=== PATIENT | female | born 1940 | race African-American/Black ===

== ENCOUNTER 2019-09-18 20:35 | Emergency (ER) | payer MEDICARE ==
[~2019-09-18] VITALS: Ht 154.9 cm; Wt 46.0 kg
[~2019-09-18 20:35] MED LIST: AMLO5TAB4 PO; CARV12.545 PO; CYCL5TAB PO; DOCU250C69 PO; FERR-63 PO; LEVO88TA7 PO; LOV40 SQ; TRAM50TA94 PO; VIC PO
[2019-09-18] MEDS ORDERED: SODIUM CHLORIDE 0.9% 1,000 ML IV ONE (20:55)
[2019-09-18 21:00] VITALS: BP 155/87
[2019-09-18] MEDS ORDERED: DEXTROSE 50% WATER 50ML SYRINGE IV ONE (21:00)
[2019-09-18 21:39] LABS: CLARITY URINE CLEAR (CLEAR); COLOR URINE YELLOW (YELLOW); KETONES URINE NEGATIVE (NEGATIVE); LEUKOCYTE ESTERASE URINE NEGATIVE (NEGATIVE); NITRITE URINE NEGATIVE (NEGATIVE); OCCULT BLOOD URINE NEGATIVE (NEGATIVE); PH URINE 7.5 (4.5-8.0); PROTEIN URINE NEGATIVE (NEGATIVE); SPECIFIC GRAVITY URINE 1.015 (1.005-1.030); UROBILINOGEN URINE 0.2 E.U./dL (0.2-1.0)
[2019-09-18 22:07] LABS: *AMPHETAMINES SCREEN URINE NEGATIVE (NEGATIVE); *BARBITURATES SCREEN URINE NEGATIVE (NEGATIVE); *BENZODIAZEPINES SCREEN URINE NEGATIVE (NEGATIVE); *COCAINE SCREEN URINE NEGATIVE (NEGATIVE)
[2019-09-18 22:08] LABS: CANNABINOID URINE SCREEN NEGATIVE (NEGATIVE); METHADONE URINE SCREEN NEGATIVE (NEGATIVE); OPIATES URINE SCREEN PRESUMTIVE POSITIVE (NEGATIVE); PHENCYCLIDINE URINE SCREEN NEGATIVE (NEGATIVE)
[2019-09-18 22:15] LABS: EOSINOPHILS % 3.4 % (0.0-5.0); HEMATOCRIT. 36.7 % (36.0-48.0); HEMOGLOBIN. 12.7 g/dL (12.0-16.0); LYMPHOCYTES % 30.9 % (20.0-50.0); MEAN CORPUSCULAR VOLUME 80.8 fL (81.0-99.0); MEAN PLATELET VOLUME 8.3 fl (7.4-10.4); MONOCYTES % 12.3 % (2.0-8.0); NEUTROPHILS % 52.4 % (40.0-76.0); PLATELET 144 x1000/uL (130-400); RED BLOOD CELL COUNT 4.54 mill/uL (4.2-5.4); RED CELL DISTRIBUTION WIDTH 14.5 % (11.6-14.6)
[2019-09-18 22:21] LABS: CHLORIDE 112 mEq/L (98-107)
[2019-09-18 22:23] LABS: INR 0.9; PROTHROMBIN TIME 10.3 sec (9.6-11.0)
[2019-09-18 22:25] LABS: ETHANOL BLOOD < 10 mg/dL
== END 2019-09-18 23:34 | disposition home or self-care (01) ==
LOC: ER 20:35 → CANBEDREQ 09-19 00:07
DX: E16.2 Hypoglycemia, unspecified (principal); I10 Essential (primary) hypertension; R41.82 Altered mental status, unspecified; H54.8 Legal blindness, as defined in USA; Z79.899 Other long term (current) drug therapy
CPT/HCPCS: 36415; 70450; 71045; 80053; 80305; 80320; 81003; 84484; 85025; 85610; 93005; 96361; 96374; 99285; J7030; G0480

== ENCOUNTER 2022-08-31 19:45 | Inpatient (IN) | payer MEDICARE ==
[~2022-08-31] VITALS: Ht 157.5 cm; Wt 49.6 kg
[~2022-08-31 19:45] MED LIST changes: +ENOX40SY27 SQ; -LOV40 SQ
[2022-08-31] MEDS ORDERED: AZITHROMYCIN 500MG/250ML 250 ML IV ONE (20:00)
[2022-08-31] MEDS ORDERED: CEFTRIAXONE 1GM PREMIX 50 ML IV ONE (20:00)
[2022-08-31] MEDS ORDERED: SODIUM CHLORIDE 0.9% 1000ML BAG (SEPSIS BOLUS) IV ONE (20:00)
[2022-08-31 20:38] LABS: BASOPHILS % 0.3 % (0.0-2.0); EOSINOPHILS % 0.2 % (0.0-5.0); HEMATOCRIT. 44.8 % (36.0-48.0); HEMOGLOBIN. 14.6 g/dL (12.0-16.0); LYMPHOCYTES % 17.5 % (20.0-50.0); MEAN CORPUSCULAR HEMOGLOBIN 27.6 pg (28.0-32.0); MEAN CORPUSCULAR VOLUME 84.6 fL (81.0-99.0); MEAN PLATELET VOLUME 10.3 fl (7.4-10.4); MONOCYTES % 8.9 % (2.0-8.0); NEUTROPHILS % 73.1 % (40.0-76.0); PLATELET 181 x1000/uL (130-400); RED BLOOD CELL COUNT 5.29 mill/uL (4.2-5.4); RED CELL DISTRIBUTION WIDTH 15.5 % (11.6-14.6)
[2022-08-31 20:42] LABS: BG BASE EXCESS -2.9 mmol/L (-2.0-2.0); BG CARBOXYHEMOGLOBIN 0.9 % (0.5-1.5); BG DEOXYHEMOGLOBIN 2.3 % (0.0-5.0); BG FRACTION INSPIRED OXYGEN 28; BG HCO3 ACT 20.3 mmol/L (22.0-26.0); BG METHEMOGLOBIN 0.3 % (0.0-1.5); BG OXYGEN SATURATION 97.7 % (92.0-98.5); BG OXYHEMOGLOBIN 96.5 % (94.0-97.0); BG PCO2 31.3 mmHg (35.0-45.0); BG PO2 106.9 mmHg (75.0-100.0); BG SAMPLE SITE LEFT RADIAL; BG TOTAL HEMOGLOBIN 14.2 g/dL (12.0-18.0); BG VENT MODE NASAL CANNULA
[2022-08-31] MEDS ORDERED: NITROGLYCERIN 0.4MG TABLET SL SL PRN (21:15)
[2022-08-31] MEDS ORDERED: KETOROLAC 15MG/ML VIAL IV PRN (21:15)
[2022-08-31] MEDS ORDERED: CLONIDINE 0.1MG TABLET PO PRN (21:15)
[2022-08-31] MEDS ORDERED: DOCUSATE SODIUM 100MG CAPSULE PO PRN (21:15)
[2022-08-31] MEDS ORDERED: IPRATROPIUM/ALBUTEROL 0.5-3(2.5)MG/3ML NEB NEB PRN (21:15)
[2022-08-31] MEDS ORDERED: ZOLPIDEM TARTRATE 5MG TABLET PO PRN (21:15)
[2022-08-31] MEDS ORDERED: MAGNESIUM/ALUMINUM HYDROXIDE/SIMETHICONE 30ML UDC PO PRN (21:15)
[2022-08-31] MEDS ORDERED: GUAIFENESIN 200MG/10ML SUGAR FREE UDC PO PRN (21:15)
[2022-08-31] MEDS ORDERED: ACETAMINOPHEN 325MG TABLET PO PRN ×2 (21:15)
[2022-08-31] MEDS ORDERED: ONDANSETRON HCL 4MG/2ML INJ IV PRN (21:15)
[2022-08-31 21:44] LABS: CHLORIDE 134 mEq/L (98-107)
[2022-08-31 21:45] LABS: PROTHROMBIN TIME 10.9 sec (9.6-11.0)
[2022-08-31 21:51] LABS: CREATINE KINASE 356 IU/L (26-192)
[2022-08-31 22:08] LABS: T4 FREE 1.37 ng/dL (0.76-1.46)
[2022-08-31 22:48] LABS: VITAMIN B12 SERUM 1819 pg/mL (211-911)
[2022-08-31 22:49] LABS: FOLIC ACID (FOLATE) SERUM > 20.00 ng/mL (>5.38)
[2022-08-31 23:16] LABS: CREATINE KINASE MB FRACTION 1.8 ng/mL (0.5-3.6)
[2022-08-31] MEDS: ENOXAPARIN 30MG/0.3ML SYR SUBCUT SCH (23:24)
[2022-09-01] MEDS ORDERED: DEXTROSE 5% WATER 1,000 ML IV ONE (00:45)
[2022-09-01 06:36] LABS: BASOPHILS % 0.1 % (0.0-2.0); EOSINOPHILS % 0.5 % (0.0-5.0); HEMOGLOBIN. 13.9 g/dL (12.0-16.0); LYMPHOCYTES % 19.3 % (20.0-50.0); MEAN CORPUSCULAR HEMOGLOBIN 27.3 pg (28.0-32.0); MEAN CORPUSCULAR VOLUME 84.4 fL (81.0-99.0); MEAN PLATELET VOLUME 9.9 fl (7.4-10.4); MONOCYTES % 10.5 % (2.0-8.0); NEUTROPHILS % 69.6 % (40.0-76.0); PLATELET 153 x1000/uL (130-400); RED CELL DISTRIBUTION WIDTH 15.4 % (11.6-14.6)
[2022-09-01 06:43] LABS: CHLORIDE 135 mEq/L (98-107)
[2022-09-01 06:53] LABS: CREATINE KINASE 396 IU/L (26-192); CREATINE KINASE MB FRACTION 1.6 ng/mL (0.5-3.6); PHOSPHORUS 4.4 mg/dL (2.5-4.9)
[2022-09-01] MEDS: ASCORBIC ACID 500 MG TABLET PO SCH ×2 (09:00→23:20)
[2022-09-01] MEDS ORDERED: ASPIRIN 325MG EC TABLET PO SCH (09:00)
[2022-09-01] MEDS ORDERED: ALBUTEROL (0.083%) 2.5MG/3ML NEB HHN PRN (10:00)
[2022-09-01] MEDS ORDERED: IPRATROPIUM BROMIDE (0.02%) 0.5MG/2.5ML NEB HHN PRN (10:00)
[2022-09-01 10:39] VITALS: BP 108/66
[2022-09-01] MEDS: DEXT 5% WATER + KCL 20MEQ/L 1,000 ML IV SCH ×2 (11:43→19:00)
[2022-09-01] MEDS: ENOXAPARIN 30MG/0.3ML SYR SUBCUT SCH (11:43)
[2022-09-01] MEDS: LEVOTHYROXINE SODIUM 88MCG TABLET PO SCH (11:44)
[2022-09-01] MEDS: ZINC SULFATE 220 MG ( 50 ) CAPSULE PO SCH (11:44)
[2022-09-01] MEDS: FAMOTIDINE 20MG TABLET PO SCH (11:44)
[2022-09-01 12:00] VITALS: BP 110/67
[2022-09-01 16:00] VITALS: BP 90/68
[2022-09-01] MEDS: CLOPIDOGREL 75MG TABLET PO SCH (18:30)
[2022-09-01] MEDS ORDERED: ASPIRIN 325MG TABLET PO NR (18:30)
[2022-09-01 20:00] VITALS: BP 87/54
[2022-09-01] MEDS ORDERED: CEFTRIAXONE 1,000 MG in DEXTROSE 5% WATER 50 ML IV SCH (20:00)
[2022-09-01] MEDS ORDERED: AZITHROMYCIN 500 MG in DEXT 5% WATER 250 ML IV SCH (21:00)
[2022-09-01 21:22] LABS: CLARITY URINE CLOUDY (CLEAR); COLOR URINE DARK YELLOW (YELLOW); KETONES URINE TRACE (NEGATIVE); LEUKOCYTE ESTERASE URINE TRACE (NEGATIVE); NITRITE URINE NEGATIVE (NEGATIVE); OCCULT BLOOD URINE NEGATIVE (NEGATIVE); PROTEIN URINE 2+ (NEGATIVE); SPECIFIC GRAVITY URINE 1.017 (1.005-1.030); UROBILINOGEN URINE 0.2 E.U./dL (0.2-1.0)
[2022-09-01 21:39] LABS: *AMPHETAMINES SCREEN URINE NEGATIVE (NEGATIVE); *BARBITURATES SCREEN URINE NEGATIVE (NEGATIVE); *BENZODIAZEPINES SCREEN URINE NEGATIVE (NEGATIVE); *COCAINE SCREEN URINE NEGATIVE (NEGATIVE); CANNABINOID URINE SCREEN NEGATIVE (NEGATIVE); METHADONE URINE SCREEN NEGATIVE (NEGATIVE); OPIATES URINE SCREEN NEGATIVE (NEGATIVE); PHENCYCLIDINE URINE SCREEN NEGATIVE (NEGATIVE)
[2022-09-01 21:45] LABS: SODIUM URINE RANDOM 11 mEq/L
[2022-09-01] MEDS: CEFTRIAXONE 1,000 MG in DEXTROSE 5% WATER 50 ML IV SCH (22:51)
[2022-09-01] MEDS: ATORVASTATIN CALCIUM 40MG TABLET PO SCH (23:20)
[2022-09-02] VITALS: BP 96/67
[2022-09-02] MEDS: AZITHROMYCIN 500 MG in DEXT 5% WATER 250 ML IV SCH ×2 (00:01→21:56)
[2022-09-02 04:00] VITALS: BP 126/72
[2022-09-02] MEDS: DEXT 5% WATER + KCL 20MEQ/L 1,000 ML IV SCH ×3 (05:22→21:56)
[2022-09-02] MEDS: LEVOTHYROXINE SODIUM 88MCG TABLET PO SCH (06:40)
[2022-09-02 08:00] VITALS: BP 120/97
[2022-09-02] MEDS: FAMOTIDINE 20MG TABLET PO SCH (09:00)
[2022-09-02] MEDS: ENOXAPARIN 30MG/0.3ML SYR SUBCUT SCH (09:00)
[2022-09-02] MEDS: CLOPIDOGREL 75MG TABLET PO SCH (09:00)
[2022-09-02] MEDS: ZINC SULFATE 220 MG ( 50 ) CAPSULE PO SCH (09:00)
[2022-09-02] MEDS: ASCORBIC ACID 500 MG TABLET PO SCH ×2 (09:00→21:00)
[2022-09-02] MEDS: ASPIRIN 81MG EC TABLET PO SCH (09:00)
[2022-09-02 12:00] VITALS: BP 115/68
[2022-09-02 16:00] VITALS: BP 120/79
[2022-09-02 20:00] VITALS: BP 114/77
[2022-09-02 20:01] LABS: HEPATITIS B SURFACE ANTIGEN NEGATIVE
[2022-09-02] MEDS: ATORVASTATIN CALCIUM 40MG TABLET PO SCH (21:00)
[2022-09-02] MEDS: CEFTRIAXONE 1,000 MG in DEXTROSE 5% WATER 50 ML IV SCH (21:59)
[2022-09-03] VITALS: BP 110/76
[2022-09-03] MEDS: DEXT 5% WATER + KCL 20MEQ/L 1,000 ML IV SCH ×2 (03:00→16:14)
[2022-09-03 04:00] VITALS: BP 108/75
[2022-09-03] MEDS: LEVOTHYROXINE SODIUM 88MCG TABLET PO SCH (05:36)
[2022-09-03 08:00] VITALS: BP 134/64
[2022-09-03] MEDS: ZINC SULFATE 220 MG ( 50 ) CAPSULE PO SCH (09:00)
[2022-09-03] MEDS: ASCORBIC ACID 500 MG TABLET PO SCH ×2 (09:00→21:00)
[2022-09-03] MEDS: ASPIRIN 81MG EC TABLET PO SCH (09:00)
[2022-09-03] MEDS: FAMOTIDINE 20MG TABLET PO SCH (09:00)
[2022-09-03] MEDS: CLOPIDOGREL 75MG TABLET PO SCH (09:00)
[2022-09-03] MEDS: ENOXAPARIN 30MG/0.3ML SYR SUBCUT SCH (10:09)
[2022-09-03 10:48] LABS: BASOPHILS % 0.2 % (0.0-2.0); EOSINOPHILS % 1.7 % (0.0-5.0); HEMATOCRIT. 40.5 % (36.0-48.0); LYMPHOCYTES % 25.4 % (20.0-50.0); MEAN CORPUSCULAR VOLUME 83.9 fL (81.0-99.0); MEAN PLATELET VOLUME 11.8 fl (7.4-10.4); MONOCYTES % 8.9 % (2.0-8.0); NEUTROPHILS % 63.8 % (40.0-76.0); PLATELET 135 x1000/uL (130-400); RED BLOOD CELL COUNT 4.83 mill/uL (4.2-5.4); RED CELL DISTRIBUTION WIDTH 15.2 % (11.6-14.6)
[2022-09-03 12:00] VITALS: BP 130/80
[2022-09-03 16:00] VITALS: BP 118/76
[2022-09-03 20:00] VITALS: BP 125/66
[2022-09-03] MEDS: ATORVASTATIN CALCIUM 40MG TABLET PO SCH (21:00)
[2022-09-03] MEDS: CEFTRIAXONE 1,000 MG in DEXTROSE 5% WATER 50 ML IV SCH (21:34)
[2022-09-03] MEDS: AZITHROMYCIN 500 MG in DEXT 5% WATER 250 ML IV SCH (21:34)
[2022-09-04 04:00] VITALS: BP 129/74
[2022-09-04] MEDS: LEVOTHYROXINE SODIUM 88MCG TABLET PO SCH (06:05)
[2022-09-04 07:45] LABS: BASOPHILS % 0.3 % (0.0-2.0); EOSINOPHILS % 1.9 % (0.0-5.0); HEMOGLOBIN. 12.9 g/dL (12.0-16.0); LYMPHOCYTES % 24.3 % (20.0-50.0); MEAN CORPUSCULAR VOLUME 81.9 fL (81.0-99.0); MEAN PLATELET VOLUME 10.5 fl (7.4-10.4); NEUTROPHILS % 66.5 % (40.0-76.0); PLATELET 136 x1000/uL (130-400); RED BLOOD CELL COUNT 4.76 mill/uL (4.2-5.4); RED CELL DISTRIBUTION WIDTH 14.8 % (11.6-14.6)
[2022-09-04 08:00] VITALS: BP 111/81
[2022-09-04] MEDS: FAMOTIDINE 20MG TABLET PO SCH (09:00)
[2022-09-04] MEDS: ASPIRIN 81MG EC TABLET PO SCH (09:00)
[2022-09-04] MEDS: CLOPIDOGREL 75MG TABLET PO SCH (09:00)
[2022-09-04] MEDS: ASCORBIC ACID 500 MG TABLET PO SCH ×2 (09:00→21:18)
[2022-09-04] MEDS: ZINC SULFATE 220 MG ( 50 ) CAPSULE PO SCH (09:00)
[2022-09-04] MEDS: ENOXAPARIN 30MG/0.3ML SYR SUBCUT SCH (11:42)
[2022-09-04] MEDS: DEXT 5% WATER + KCL 20MEQ/L 1,000 ML IV SCH ×2 (11:43→17:42)
[2022-09-04 12:00] VITALS: BP 131/79
[2022-09-04] MEDS: LORAZEPAM 2MG/ML CPJ IV PRN (14:18)
[2022-09-04 16:00] VITALS: BP 133/85
[2022-09-04 20:00] VITALS: BP 139/76
[2022-09-04] MEDS: CEFTRIAXONE 1,000 MG in DEXTROSE 5% WATER 50 ML IV SCH (20:29)
[2022-09-04] MEDS: ATORVASTATIN CALCIUM 40MG TABLET PO SCH (21:18)
[2022-09-04] MEDS: AZITHROMYCIN 500 MG in DEXT 5% WATER 250 ML IV SCH (21:51)
[2022-09-05] VITALS: BP 138/87
[2022-09-05 04:00] VITALS: BP 155/75
[2022-09-05] MEDS: LEVOTHYROXINE SODIUM 88MCG TABLET PO SCH (05:59)
[2022-09-05] MEDS: DEXT 5% WATER + KCL 20MEQ/L 1,000 ML IV SCH ×3 (06:02→23:57)
[2022-09-05 06:49] LABS: HEMATOCRIT. 37.5 % (36.0-48.0); HEMOGLOBIN. 12.3 g/dL (12.0-16.0); MEAN CORPUSCULAR HEMOGLOBIN 27.6 pg (28.0-32.0); MEAN PLATELET VOLUME 10.8 fl (7.4-10.4); PLATELET 119 x1000/uL (130-400); RED BLOOD CELL COUNT 4.46 mill/uL (4.2-5.4); RED CELL DISTRIBUTION WIDTH 14.9 % (11.6-14.6)
[2022-09-05 08:00] VITALS: BP 123/75
[2022-09-05] MEDS: CLOPIDOGREL 75MG TABLET PO SCH (10:24)
[2022-09-05] MEDS: ASCORBIC ACID 500 MG TABLET PO SCH ×2 (10:24→21:53)
[2022-09-05] MEDS: ZINC SULFATE 220 MG ( 50 ) CAPSULE PO SCH (10:24)
[2022-09-05] MEDS: ASPIRIN 81MG EC TABLET PO SCH (10:24)
[2022-09-05] MEDS: ENOXAPARIN 30MG/0.3ML SYR SUBCUT SCH (10:24)
[2022-09-05] MEDS: FAMOTIDINE 20MG TABLET PO SCH (10:24)
[2022-09-05] MEDS: RISPERIDONE 0.25MG TABLET NG SCH ×2 (10:26→18:06)
[2022-09-05 12:00] VITALS: BP 119/66
[2022-09-05 16:00] VITALS: BP 126/80
[2022-09-05 20:00] VITALS: BP 133/82
[2022-09-05 20:59] LABS: PLATELET ESTIMATE DECREASED
[2022-09-05] MEDS: CEFTRIAXONE 1,000 MG in DEXTROSE 5% WATER 50 ML IV SCH (21:00)
[2022-09-05] MEDS ORDERED: MIRTAZAPINE 15MG TABLET NG SCH (21:00)
[2022-09-05] MEDS: ATORVASTATIN CALCIUM 40MG TABLET PO SCH (21:53)
[2022-09-06] VITALS: BP 138/81
[2022-09-06 04:00] VITALS: BP 141/83
[2022-09-06] MEDS: RISPERIDONE 0.25MG TABLET NG SCH ×2 (06:04→17:35)
[2022-09-06] MEDS: LEVOTHYROXINE SODIUM 88MCG TABLET PO SCH (06:04)
[2022-09-06 08:00] VITALS: BP 125/100
[2022-09-06] MEDS ORDERED: LACTULOSE 20G/30ML UDC NG NR (09:00)
[2022-09-06] MEDS: ENOXAPARIN 30MG/0.3ML SYR SUBCUT SCH (09:15)
[2022-09-06] MEDS: ZINC SULFATE 220 MG ( 50 ) CAPSULE PO SCH (09:16)
[2022-09-06] MEDS: CLOPIDOGREL 75MG TABLET PO SCH (09:17)
[2022-09-06] MEDS: ASPIRIN 81MG EC TABLET PO SCH (09:17)
[2022-09-06] MEDS: FAMOTIDINE 20MG TABLET PO SCH (09:17)
[2022-09-06] MEDS: AMLODIPINE 2.5MG TABLET PO SCH (09:17)
[2022-09-06] MEDS: ASCORBIC ACID 500 MG TABLET PO SCH ×2 (09:18→20:42)
[2022-09-06] MEDS: DEXT 5% WATER + KCL 20MEQ/L 1,000 ML IV SCH ×2 (09:21→20:14)
[2022-09-06 10:30] LABS: BASOPHILS % 0.3 % (0.0-2.0); EOSINOPHILS % 2.8 % (0.0-5.0); HEMATOCRIT. 39.1 % (36.0-48.0); HEMOGLOBIN. 12.8 g/dL (12.0-16.0); LYMPHOCYTES % 26.3 % (20.0-50.0); MEAN CORPUSCULAR HEMOGLOBIN 26.9 pg (28.0-32.0); MEAN CORPUSCULAR VOLUME 82.3 fL (81.0-99.0); MEAN PLATELET VOLUME 10.6 fl (7.4-10.4); MONOCYTES % 10.9 % (2.0-8.0); NEUTROPHILS % 59.7 % (40.0-76.0); PLATELET 130 x1000/uL (130-400); RED BLOOD CELL COUNT 4.75 mill/uL (4.2-5.4)
[2022-09-06 10:39] LABS: CHLORIDE 118 mEq/L (98-107)
[2022-09-06 12:00] VITALS: BP 131/88
[2022-09-06] MEDS ORDERED: LORAZEPAM 2MG/ML CPJ IV NR (15:15)
[2022-09-06 16:00] VITALS: BP 123/89
[2022-09-06 20:00] VITALS: BP 118/89
[2022-09-06] MEDS: ATORVASTATIN CALCIUM 40MG TABLET PO SCH (20:42)
[2022-09-06] MEDS: MIRTAZAPINE 15MG TABLET PO SCH (20:42)
[2022-09-06] MEDS ORDERED: LORAZEPAM 2MG/ML CPJ IV PRN (21:00)
[2022-09-07] VITALS: BP 118/71
[2022-09-07 04:00] VITALS: BP 162/89
[2022-09-07] MEDS: DEXT 5% WATER + KCL 20MEQ/L 1,000 ML IV SCH (04:54)
[2022-09-07] MEDS: RISPERIDONE 0.25MG TABLET NG SCH ×2 (06:02→18:46)
[2022-09-07] MEDS: LEVOTHYROXINE SODIUM 88MCG TABLET PO SCH (06:03)
[2022-09-07 08:25] VITALS: BP 167/90
[2022-09-07] MEDS: ASPIRIN 81MG EC TABLET PO SCH ×2 (09:00→09:25)
[2022-09-07] MEDS: ASCORBIC ACID 500 MG TABLET PO SCH ×2 (09:00→20:01)
[2022-09-07] MEDS: ZINC SULFATE 220 MG ( 50 ) CAPSULE PO SCH (09:24)
[2022-09-07] MEDS: AMLODIPINE 2.5MG TABLET PO SCH ×2 (09:24→18:46)
[2022-09-07] MEDS: ENOXAPARIN 30MG/0.3ML SYR SUBCUT SCH (09:24)
[2022-09-07] MEDS: CLOPIDOGREL 75MG TABLET PO SCH (09:25)
[2022-09-07] MEDS: FAMOTIDINE 20MG TABLET PO SCH (09:25)
[2022-09-07 12:00] VITALS: BP 155/87
[2022-09-07] MEDS ORDERED: CLONIDINE 0.1MG TABLET PO NR (13:30)
[2022-09-07] MEDS: LORAZEPAM 2MG/ML CPJ IV PRN (15:16)
[2022-09-07 16:02] VITALS: BP 126/99
[2022-09-07 20:00] VITALS: BP 145/96
[2022-09-07] MEDS: MIRTAZAPINE 15MG TABLET PO SCH (20:00)
[2022-09-07] MEDS: ATORVASTATIN CALCIUM 40MG TABLET PO SCH (20:01)
[2022-09-08] VITALS: BP 126/86
[2022-09-08 04:00] VITALS: BP 145/82
[2022-09-08] MEDS ORDERED: RISPERIDONE 0.25MG TABLET NG SCH (06:00)
[2022-09-08] MEDS: LEVOTHYROXINE SODIUM 88MCG TABLET PO SCH (06:25)
[2022-09-08 07:05] LABS: BASOPHILS % 0.5 % (0.0-2.0); EOSINOPHILS % 2.8 % (0.0-5.0); HEMATOCRIT. 35.7 % (36.0-48.0); LYMPHOCYTES % 24.8 % (20.0-50.0); MEAN CORPUSCULAR HEMOGLOBIN 27.3 pg (28.0-32.0); MEAN CORPUSCULAR VOLUME 81.4 fL (81.0-99.0); MEAN PLATELET VOLUME 10.7 fl (7.4-10.4); MONOCYTES % 13.8 % (2.0-8.0); NEUTROPHILS % 58.1 % (40.0-76.0); PLATELET 144 x1000/uL (130-400); RED BLOOD CELL COUNT 4.38 mill/uL (4.2-5.4); RED CELL DISTRIBUTION WIDTH 14.8 % (11.6-14.6)
[2022-09-08 08:00] VITALS: BP 103/58
[2022-09-08] MEDS: FAMOTIDINE 20MG TABLET PO SCH (08:17)
[2022-09-08] MEDS: ASPIRIN 81MG EC TABLET PO SCH (08:17)
[2022-09-08] MEDS: CLOPIDOGREL 75MG TABLET PO SCH (08:18)
[2022-09-08] MEDS: ZINC SULFATE 220 MG ( 50 ) CAPSULE PO SCH (08:18)
[2022-09-08] MEDS: ENOXAPARIN 30MG/0.3ML SYR SUBCUT SCH (08:18)
[2022-09-08] MEDS: AMLODIPINE 2.5MG TABLET PO SCH (08:19)
[2022-09-08] MEDS: ASCORBIC ACID 500 MG TABLET PO SCH ×2 (08:19→19:49)
[2022-09-08 09:03] LABS: CHLORIDE 113 mEq/L (98-107); PHOSPHORUS 2.7 mg/dL (2.5-4.9)
[2022-09-08 12:00] VITALS: BP 134/92
[2022-09-08 16:00] VITALS: BP 98/45
[2022-09-08] MEDS ORDERED: AMLODIPINE 2.5MG TABLET PO SCH (17:00)
[2022-09-08] MEDS: RISPERIDONE 0.5MG TABLET NG SCH (17:00)
[2022-09-08] MEDS: ATORVASTATIN CALCIUM 40MG TABLET PO SCH (19:49)
[2022-09-08] MEDS: MIRTAZAPINE 15MG TABLET PO SCH (19:49)
[2022-09-08 20:00] VITALS: BP 154/96
[2022-09-09] VITALS: BP 96/75
[2022-09-09 04:00] VITALS: BP 117/87
[2022-09-09] MEDS: RISPERIDONE 0.5MG TABLET NG SCH (05:36)
[2022-09-09] MEDS: LEVOTHYROXINE SODIUM 88MCG TABLET PO SCH (05:39)
[2022-09-09 06:23] LABS: BASOPHILS % 0.4 % (0.0-2.0); EOSINOPHILS % 2.6 % (0.0-5.0); HEMOGLOBIN. 11.9 g/dL (12.0-16.0); LYMPHOCYTES % 23.7 % (20.0-50.0); MEAN CORPUSCULAR HEMOGLOBIN 27.2 pg (28.0-32.0); MEAN PLATELET VOLUME 11.5 fl (7.4-10.4); MONOCYTES % 9.9 % (2.0-8.0); NEUTROPHILS % 63.4 % (40.0-76.0); PLATELET 164 x1000/uL (130-400); RED BLOOD CELL COUNT 4.39 mill/uL (4.2-5.4); RED CELL DISTRIBUTION WIDTH 14.9 % (11.6-14.6)
[2022-09-09 08:00] VITALS: BP 138/93
[2022-09-09] MEDS: AMLODIPINE 2.5MG TABLET PO SCH (09:10)
[2022-09-09] MEDS: FAMOTIDINE 20MG TABLET PO SCH (09:11)
[2022-09-09] MEDS: ASPIRIN 81MG EC TABLET PO SCH (09:11)
[2022-09-09] MEDS: CLOPIDOGREL 75MG TABLET PO SCH (09:12)
[2022-09-09] MEDS: ZINC SULFATE 220 MG ( 50 ) CAPSULE PO SCH (09:12)
[2022-09-09] MEDS: ENOXAPARIN 30MG/0.3ML SYR SUBCUT SCH (09:13)
[2022-09-09] MEDS: ASCORBIC ACID 500 MG TABLET PO SCH ×2 (09:13→21:55)
[2022-09-09 12:00] VITALS: BP 139/92
[2022-09-09 16:00] VITALS: BP 127/85
[2022-09-09 20:00] VITALS: BP 132/58
[2022-09-09] MEDS: ATORVASTATIN CALCIUM 40MG TABLET PO SCH (21:55)
[2022-09-09] MEDS: MIRTAZAPINE 15MG TABLET PO SCH (21:55)
[2022-09-10] VITALS: BP 130/50
[2022-09-10 04:00] VITALS: BP 143/60
[2022-09-10] MEDS: LEVOTHYROXINE SODIUM 88MCG TABLET PO SCH (05:15)
[2022-09-10 08:00] VITALS: BP 158/89
[2022-09-10] MEDS: RISPERIDONE 0.5MG TABLET NG SCH ×2 (08:00→17:43)
[2022-09-10] MEDS: ZINC SULFATE 220 MG ( 50 ) CAPSULE PO SCH (08:57)
[2022-09-10] MEDS: AMLODIPINE 2.5MG TABLET PO SCH (08:57)
[2022-09-10] MEDS: ASCORBIC ACID 500 MG TABLET PO SCH ×2 (08:57→21:18)
[2022-09-10] MEDS: ASPIRIN 81MG EC TABLET PO SCH (08:57)
[2022-09-10] MEDS: ENOXAPARIN 30MG/0.3ML SYR SUBCUT SCH (08:57)
[2022-09-10] MEDS: FAMOTIDINE 20MG TABLET PO SCH (08:57)
[2022-09-10 12:00] VITALS: BP 120/83
[2022-09-10 16:00] VITALS: BP 140/88
[2022-09-10 20:00] VITALS: BP 104/59
[2022-09-10] MEDS: ATORVASTATIN CALCIUM 40MG TABLET PO SCH (21:17)
[2022-09-10] MEDS: MIRTAZAPINE 15MG TABLET PO SCH (21:17)
[2022-09-11] VITALS: BP 121/52
[2022-09-11 04:00] VITALS: BP 117/43
[2022-09-11] MEDS: LEVOTHYROXINE SODIUM 88MCG TABLET PO SCH (05:40)
[2022-09-11] MEDS: RISPERIDONE 0.5MG TABLET NG SCH ×2 (05:40→18:00)
[2022-09-11 05:45] LABS: BASOPHILS % 0.5 % (0.0-2.0); EOSINOPHILS % 2.3 % (0.0-5.0); HEMATOCRIT. 34.5 % (36.0-48.0); HEMOGLOBIN. 11.5 g/dL (12.0-16.0); LYMPHOCYTES % 26.9 % (20.0-50.0); MEAN CORPUSCULAR HEMOGLOBIN 27.2 pg (28.0-32.0); MEAN CORPUSCULAR VOLUME 81.4 fL (81.0-99.0); MEAN PLATELET VOLUME 10.8 fl (7.4-10.4); MONOCYTES % 11.4 % (2.0-8.0); NEUTROPHILS % 58.9 % (40.0-76.0); PLATELET 166 x1000/uL (130-400); RED BLOOD CELL COUNT 4.24 mill/uL (4.2-5.4); RED CELL DISTRIBUTION WIDTH 14.8 % (11.6-14.6)
[2022-09-11] MEDS: SODIUM CHLORIDE 0.45% 1,000 ML IV SCH (06:54)
[2022-09-11 08:00] VITALS: BP 148/78
[2022-09-11] MEDS: FAMOTIDINE 20MG TABLET PO SCH ×2 (09:00→11:55)
[2022-09-11] MEDS: AMLODIPINE 2.5MG TABLET PO SCH ×2 (09:00→11:55)
[2022-09-11] MEDS: ASPIRIN 81MG EC TABLET PO SCH ×2 (09:00→11:55)
[2022-09-11] MEDS: ASCORBIC ACID 500 MG TABLET PO SCH ×3 (09:00→20:55)
[2022-09-11] MEDS: ZINC SULFATE 220 MG ( 50 ) CAPSULE PO SCH ×2 (09:00→11:55)
[2022-09-11] MEDS: ENOXAPARIN 30MG/0.3ML SYR SUBCUT SCH ×2 (09:00→11:56)
[2022-09-11 12:00] VITALS: BP 139/80
[2022-09-11 16:00] VITALS: BP 134/82
[2022-09-11 20:00] VITALS: BP 145/81
[2022-09-11] MEDS: MIRTAZAPINE 15MG TABLET PO SCH (20:55)
[2022-09-11] MEDS: ATORVASTATIN CALCIUM 40MG TABLET PO SCH (20:55)
[2022-09-11] MEDS ORDERED: LORAZEPAM 2MG/ML CPJ IV PRN (23:00)
[2022-09-12] VITALS: BP 118/76
[2022-09-12] MEDS: SODIUM CHLORIDE 0.45% 1,000 ML IV SCH (00:12)
[2022-09-12 04:00] VITALS: BP 130/82
[2022-09-12] MEDS: LEVOTHYROXINE SODIUM 88MCG TABLET PO SCH (05:22)
[2022-09-12] MEDS: RISPERIDONE 0.5MG TABLET NG SCH (05:22)
[2022-09-12 07:02] LABS: BASOPHILS % 0.5 % (0.0-2.0); HEMATOCRIT. 34.9 % (36.0-48.0); HEMOGLOBIN. 11.8 g/dL (12.0-16.0); LYMPHOCYTES % 18.9 % (20.0-50.0); MEAN CORPUSCULAR HEMOGLOBIN 27.4 pg (28.0-32.0); MEAN PLATELET VOLUME 10.5 fl (7.4-10.4); MONOCYTES % 10.1 % (2.0-8.0); NEUTROPHILS % 69.5 % (40.0-76.0); PLATELET 177 x1000/uL (130-400); RED BLOOD CELL COUNT 4.31 mill/uL (4.2-5.4); RED CELL DISTRIBUTION WIDTH 14.8 % (11.6-14.6)
[2022-09-12 08:00] VITALS: BP 143/96
[2022-09-12] MEDS: FAMOTIDINE 20MG TABLET PO SCH (09:00)
[2022-09-12] MEDS: AMLODIPINE 2.5MG TABLET PO SCH (09:00)
[2022-09-12] MEDS: ASCORBIC ACID 500 MG TABLET PO SCH (09:00)
[2022-09-12] MEDS: ASPIRIN 81MG EC TABLET PO SCH (09:00)
[2022-09-12] MEDS: ZINC SULFATE 220 MG ( 50 ) CAPSULE PO SCH (09:00)
[2022-09-12] MEDS: ENOXAPARIN 30MG/0.3ML SYR SUBCUT SCH (09:57)
[2022-09-12 12:00] VITALS: BP 120/81
[2022-09-12 12:18] VITALS: BP 120/81
== END 2022-09-12 15:00 | disposition home health service (06) | DRG 91 ==
LOC: ER 19:57 → EDBEDREQ 20:19 → SUPCPDRO 21:05 → 7EST 21:11 → EDBEDREQSVC 21:33 → EDBEDREQ 21:33 → EDBEDREQTM 21:33
PROVIDERS: ADMIT Internal Medicine Geriatric Medicine; ATTEND Internal Medicine Geriatric Medicine
DX: G92.8 Other toxic encephalopathy (principal); I21.4 Non-ST elevation (NSTEMI) myocardial infarction; J96.01 Acute respiratory failure with hypoxia; N17.9 Acute kidney failure, unspecified; M62.82 Rhabdomyolysis; I13.0 Hypertensive heart and chronic kidney disease with heart failure and stage 1 through stage 4 chronic kidney disease, or unspecified chronic kidney disease; I50.22 Chronic systolic (congestive) heart failure; E87.20 Acidosis, unspecified; E87.0 Hyperosmolality and hypernatremia; F02.83 Dementia in other diseases classified elsewhere, unspecified severity, with mood disturbance; E87.1 Hypo-osmolality and hyponatremia; Z66 Do not resuscitate; N18.9 Chronic kidney disease, unspecified; M19.90 Unspecified osteoarthritis, unspecified site; I45.10 Unspecified right bundle-branch block; Z20.822 Contact with and (suspected) exposure to COVID-19; I49.1 Atrial premature depolarization; H91.90 Unspecified hearing loss, unspecified ear; U09.9 Post COVID-19 condition, unspecified; R62.7 Adult failure to thrive; I25.10 Atherosclerotic heart disease of native coronary artery without angina pectoris; I08.0 Rheumatic disorders of both mitral and aortic valves; H54.8 Legal blindness, as defined in USA; F32.A Depression, unspecified; E87.8 Other disorders of electrolyte and fluid balance, not elsewhere classified; E86.1 Hypovolemia; E86.0 Dehydration; E78.1 Pure hyperglyceridemia; I95.9 Hypotension, unspecified; R73.03 Prediabetes; F02.80 Dementia in other diseases classified elsewhere, unspecified severity, without behavioral disturbance, psychotic disturbance, mood disturbance, and anxiety; G30.9 Alzheimer's disease, unspecified; Z96.651 Presence of right artificial knee joint; Z96.653 Presence of artificial knee joint, bilateral; Z79.899 Other long term (current) drug therapy; Z79.02 Long term (current) use of antithrombotics/antiplatelets
CPT/HCPCS: 36415; 36600; 71045; 74018; 76705; 76770; 80048; 80053; 80061; 80305; 81003; 82375; 82550; 82553; 82607; 82728; 82746; 82805; 82962; 83036; 83540; 83550; 83605; 83615; 83735; 83880; 83930; 83935; 84100; 84145; 84300; 84439; 84443; 84484; 85025; 86705; 86709; 86803; 87340; 87426; 92610; 93005; 93306; 93970; 97164; 97530; 99291; C1893; C9803; J0456; J0696; J1650; J2060; J7030; J7060

== ENCOUNTER 2022-09-24 19:06 | Inpatient (IN) | payer MEDICARE ==
[~2022-09-24] VITALS: Ht 165.1 cm; Wt 50.6 kg
[2022-09-24] MEDS ORDERED: ONDANSETRON HCL 4MG/2ML INJ IV STA (20:02)
[2022-09-24] MEDS ORDERED: SODIUM CHLORIDE 0.9% 1000ML BAG (SEPSIS BOLUS) IV ONE (20:15)
[2022-09-24] MEDS ORDERED: CEFTRIAXONE 1GM PREMIX 50 ML IV ONE (20:15)
[2022-09-24 21:07] LABS: BASOPHILS % 0.7 % (0.0-2.0); EOSINOPHILS % 2.5 % (0.0-5.0); HEMATOCRIT. 39.3 % (36.0-48.0); HEMOGLOBIN. 12.3 g/dL (12.0-16.0); INR 1.2; LYMPHOCYTES % 26.4 % (20.0-50.0); MEAN CORPUSCULAR HEMOGLOBIN 27.2 pg (28.0-32.0); MEAN CORPUSCULAR VOLUME 86.7 fL (81.0-99.0); MEAN PLATELET VOLUME 10.5 fl (7.4-10.4); MONOCYTES % 11.5 % (2.0-8.0); NEUTROPHILS % 58.9 % (40.0-76.0); PLATELET 128 x1000/uL (130-400); PROTHROMBIN TIME 12.4 sec (9.6-11.0); RED BLOOD CELL COUNT 4.53 mill/uL (4.2-5.4); RED CELL DISTRIBUTION WIDTH 17.6 % (11.6-14.6)
[2022-09-24 21:09] LABS: CHLORIDE 138 mEq/L (98-107)
[2022-09-24 21:23] LABS: CREATINE KINASE 79 IU/L (26-192)
[2022-09-24] MEDS ORDERED: VANCOMYCIN 1G PREMIX 200 ML IV NR (23:00)
[2022-09-25 06:00] VITALS: BP 115/76
[2022-09-25 06:06] VITALS: BP 115/76
[2022-09-25] MEDS ORDERED: DEXT 5% WATER 100 ML IV SCH ×2 (06:45→07:45)
[2022-09-25] MEDS ORDERED: ACETAMINOPHEN 650MG SUPP PR PRN ×2 (06:45→07:45)
[2022-09-25 08:00] VITALS: BP 123/96
[2022-09-25] MEDS ORDERED: FAMOTIDINE 20MG/2ML VIAL IV SCH (09:00)
[2022-09-25] MEDS ORDERED: ENOXAPARIN 30MG/0.3ML SYR SUBCUT SCH (09:00)
[2022-09-25] MEDS: DEXTROSE 5% WATER 1,000 ML IV SCH ×2 (09:10→21:12)
[2022-09-25] MEDS: ENOXAPARIN 30MG/0.3ML SYR SUBCUT SCH (09:21)
[2022-09-25] MEDS: FAMOTIDINE 20MG/2ML VIAL IV SCH (09:21)
[2022-09-25 10:08] LABS: BASOPHILS % 0.5 % (0.0-2.0); EOSINOPHILS % 3.3 % (0.0-5.0); HEMATOCRIT. 34.5 % (36.0-48.0); HEMOGLOBIN. 11.4 g/dL (12.0-16.0); LYMPHOCYTES % 26.2 % (20.0-50.0); MEAN CORPUSCULAR HEMOGLOBIN 27.9 pg (28.0-32.0); MEAN CORPUSCULAR VOLUME 84.8 fL (81.0-99.0); MEAN PLATELET VOLUME 10.4 fl (7.4-10.4); PLATELET 120 x1000/uL (130-400); RED BLOOD CELL COUNT 4.07 mill/uL (4.2-5.4); RED CELL DISTRIBUTION WIDTH 16.6 % (11.6-14.6)
[2022-09-25 10:31] LABS: T4 FREE 0.9 ng/dL (0.76-1.46)
[2022-09-25] MEDS: LEVOTHYROXINE SODIUM 100 MCG/ VIAL IV SCH (11:13)
[2022-09-25 12:06] VITALS: BP 127/74
[2022-09-25 16:00] VITALS: BP 108/56
[2022-09-25 20:00] VITALS: BP 90/58
[2022-09-26] VITALS: BP_SYST 87; BP_SYST 96; BP_DIAS 56; BP_DIAS 66
[2022-09-26 03:57] VITALS: BP 99/67
[2022-09-26 08:00] VITALS: BP 107/76
[2022-09-26] MEDS ORDERED: DIATR MEGLU/DIATRIZOATE SOLN 30ML PO SCH (09:15)
[2022-09-26 09:42] LABS: BG BASE EXCESS -4.7 mmol/L (-2.0-2.0); BG CARBOXYHEMOGLOBIN 0.2 % (0.5-1.5); BG DEOXYHEMOGLOBIN 4.2 % (0.0-5.0); BG FRACTION INSPIRED OXYGEN 21; BG HCO3 ACT 18.6 mmol/L (22.0-26.0); BG METHEMOGLOBIN 0.2 % (0.0-1.5); BG OXYGEN SATURATION 95.8 % (92.0-98.5); BG OXYHEMOGLOBIN 95.4 % (94.0-97.0); BG PCO2 28.9 mmHg (35.0-45.0); BG PH 7.426 (7.350-7.450); BG PO2 77.6 mmHg (75.0-100.0); BG SAMPLE SITE LEFT BRACHIAL; BG TOTAL HEMOGLOBIN 11.2 g/dL (12.0-18.0); BG VENT MODE ROOM AIR
[2022-09-26] MEDS: ENOXAPARIN 30MG/0.3ML SYR SUBCUT SCH (10:13)
[2022-09-26] MEDS: LEVOTHYROXINE SODIUM 100 MCG/ VIAL IV SCH (10:13)
[2022-09-26] MEDS: FAMOTIDINE 20MG/2ML VIAL IV SCH (10:14)
[2022-09-26] MEDS: SODIUM BICARBONATE 100 MEQ in DEXTROSE 5% WATER 1,000 ML IV SCH ×2 (11:00→21:16)
[2022-09-26 12:00] VITALS: BP 97/52
[2022-09-26 16:00] VITALS: BP 110/64
[2022-09-26 20:00] VITALS: BP 104/79
[2022-09-27] VITALS: BP 105/56
[2022-09-27 04:00] VITALS: BP 93/61
[2022-09-27] MEDS: SODIUM BICARBONATE 100 MEQ in DEXTROSE 5% WATER 1,000 ML IV SCH ×3 (05:41→23:20)
[2022-09-27 07:23] LABS: BASOPHILS % 0.2 % (0.0-2.0); HEMATOCRIT. 34.8 % (36.0-48.0); LYMPHOCYTES % 23.9 % (20.0-50.0); MEAN CORPUSCULAR HEMOGLOBIN 27.5 pg (28.0-32.0); MEAN CORPUSCULAR VOLUME 86.7 fL (81.0-99.0); MEAN PLATELET VOLUME 11.5 fl (7.4-10.4); MONOCYTES % 8.7 % (2.0-8.0); NEUTROPHILS % 64.2 % (40.0-76.0); PLATELET 81 x1000/uL (130-400); RED BLOOD CELL COUNT 4.01 mill/uL (4.2-5.4); RED CELL DISTRIBUTION WIDTH 16.8 % (11.6-14.6)
[2022-09-27 08:21] VITALS: BP 115/67
[2022-09-27 08:26] LABS: CHLORIDE 118 mEq/L (98-107)
[2022-09-27] MEDS ORDERED: POTASSIUM CHLORIDE 20MEQ/PACKET NG NR (09:15)
[2022-09-27] MEDS: LEVOTHYROXINE SODIUM 100 MCG/ VIAL IV SCH (09:59)
[2022-09-27] MEDS: FAMOTIDINE 20MG/2ML VIAL IV SCH (10:03)
[2022-09-27] MEDS: ENOXAPARIN 30MG/0.3ML SYR SUBCUT SCH (10:07)
[2022-09-27 12:00] VITALS: BP 116/70
[2022-09-27 16:00] VITALS: BP 122/62
[2022-09-27 20:00] VITALS: BP 105/67
[2022-09-28] VITALS: BP 99/73
[2022-09-28 04:00] VITALS: BP 101/76
[2022-09-28] MEDS: SODIUM BICARBONATE 100 MEQ in DEXTROSE 5% WATER 1,000 ML IV SCH (06:22)
[2022-09-28 08:00] VITALS: BP 122/81
[2022-09-28 08:03] LABS: BASOPHILS % 0.2 % (0.0-2.0); EOSINOPHILS % 3.4 % (0.0-5.0); HEMATOCRIT. 28.8 % (36.0-48.0); HEMOGLOBIN. 9.8 g/dL (12.0-16.0); LYMPHOCYTES % 22.9 % (20.0-50.0); MEAN CORPUSCULAR HEMOGLOBIN 27.9 pg (28.0-32.0); MEAN CORPUSCULAR VOLUME 81.8 fL (81.0-99.0); MEAN PLATELET VOLUME 10.9 fl (7.4-10.4); MONOCYTES % 8.9 % (2.0-8.0); NEUTROPHILS % 64.6 % (40.0-76.0); PLATELET 81 x1000/uL (130-400); RED BLOOD CELL COUNT 3.52 mill/uL (4.2-5.4); RED CELL DISTRIBUTION WIDTH 16.2 % (11.6-14.6)
[2022-09-28] MEDS: ENOXAPARIN 30MG/0.3ML SYR SUBCUT SCH (08:59)
[2022-09-28] MEDS: LEVOTHYROXINE SODIUM 100 MCG/ VIAL IV SCH (08:59)
[2022-09-28] MEDS ORDERED: POTASSIUM CHLORIDE 20MEQ/PACKET NG NR (09:15)
[2022-09-28] MEDS ORDERED: POTASSIUM CHLORIDE 20MEQ/PACKET NG SCH (09:30)
[2022-09-28] MEDS ORDERED: MAGNESIUM 2 G PREMIX 50 ML IV ONE (09:45)
[2022-09-28] MEDS: MULTIVITAMINS,THER W-MINERALS TABLET NG SCH (11:01)
[2022-09-28] MEDS: FAMOTIDINE 20MG/2ML VIAL IV SCH (11:01)
[2022-09-28] MEDS ORDERED: BISACODYL 10MG SUPP PR NR (11:45)
[2022-09-28] MEDS: SODIUM CHL 0.45% + KCL 20MEQ/L 1,000 ML IV SCH ×2 (11:50→21:00)
[2022-09-28 12:00] VITALS: BP 139/59
[2022-09-28 16:00] VITALS: BP 122/75
[2022-09-28] MEDS: METOCLOPRAMIDE HCL 10MG/2ML VIAL IV SCH (17:30)
[2022-09-28 20:00] VITALS: BP 113/63
[2022-09-29] VITALS: BP 105/51
[2022-09-29] MEDS: METOCLOPRAMIDE HCL 10MG/2ML VIAL IV SCH ×2 (01:36→05:57)
[2022-09-29 04:00] VITALS: BP 112/75
[2022-09-29] MEDS: SODIUM CHL 0.45% + KCL 20MEQ/L 1,000 ML IV SCH ×2 (05:57→19:01)
[2022-09-29 06:42] LABS: CHLORIDE 111 mEq/L (98-107)
[2022-09-29 06:44] LABS: BASOPHILS % 0.1 % (0.0-2.0); EOSINOPHILS % 2.8 % (0.0-5.0); HEMATOCRIT. 31.1 % (36.0-48.0); HEMOGLOBIN. 10.4 g/dL (12.0-16.0); LYMPHOCYTES % 24.5 % (20.0-50.0); MEAN CORPUSCULAR HEMOGLOBIN 28.1 pg (28.0-32.0); MEAN CORPUSCULAR VOLUME 83.8 fL (81.0-99.0); MEAN PLATELET VOLUME 10.6 fl (7.4-10.4); MONOCYTES % 7.8 % (2.0-8.0); NEUTROPHILS % 64.8 % (40.0-76.0); PLATELET 81 x1000/uL (130-400); PROTHROMBIN TIME 10.4 sec (9.6-11.0); RED BLOOD CELL COUNT 3.71 mill/uL (4.2-5.4); RED CELL DISTRIBUTION WIDTH 15.8 % (11.6-14.6)
[2022-09-29 06:52] LABS: PHOSPHORUS 2.5 mg/dL (2.5-4.9)
[2022-09-29 08:00] VITALS: BP 136/75
[2022-09-29] MEDS: MULTIVITAMINS,THER W-MINERALS TABLET NG SCH (09:00)
[2022-09-29] MEDS: LEVOTHYROXINE SODIUM 100 MCG/ VIAL IV SCH (09:17)
[2022-09-29] MEDS: FAMOTIDINE 20MG/2ML VIAL IV SCH (09:17)
[2022-09-29] MEDS: DOCUSATE SODIUM SUGAR FREE 100MG/10ML UDC NG SCH (09:30)
[2022-09-29] MEDS ORDERED: LACTULOSE 20G/30ML UDC PO PRN (09:30)
[2022-09-29 12:00] VITALS: BP 122/78
[2022-09-29] MEDS ORDERED: CEFAZOLIN 1000MG PREMIX 50 ML IV ONE (13:00)
[2022-09-29] MEDS ORDERED: PROPOFOL 200MG/20ML VIAL IV ONE (14:15)
[2022-09-29] MEDS ORDERED: DEXAMETHASONE 4MG/ML 1ML VIAL ONE (14:31)
[2022-09-29] MEDS ORDERED: ONDANSETRON HCL 4MG/2ML INJ ONE (14:31)
[2022-09-29 16:00] VITALS: BP 136/82
[2022-09-29 20:00] VITALS: BP 125/76
[2022-09-30] VITALS: BP 105/73
[2022-09-30] MEDS: SODIUM CHL 0.45% + KCL 20MEQ/L 1,000 ML IV SCH (02:24)
[2022-09-30 04:00] VITALS: BP 118/66
[2022-09-30 07:03] LABS: BASOPHILS % 0.1 % (0.0-2.0); HEMATOCRIT. 29.1 % (36.0-48.0); HEMOGLOBIN. 9.7 g/dL (12.0-16.0); LYMPHOCYTES % 11.5 % (20.0-50.0); MEAN CORPUSCULAR VOLUME 83.8 fL (81.0-99.0); MEAN PLATELET VOLUME 11.7 fl (7.4-10.4); MONOCYTES % 7.2 % (2.0-8.0); NEUTROPHILS % 81.2 % (40.0-76.0); PLATELET 94 x1000/uL (130-400); RED BLOOD CELL COUNT 3.48 mill/uL (4.2-5.4); RED CELL DISTRIBUTION WIDTH 15.9 % (11.6-14.6)
[2022-09-30 08:06] VITALS: BP 110/76
[2022-09-30] MEDS ORDERED: LEVOTHYROXINE SODIUM 100 MCG/ VIAL IV SCH (09:00)
[2022-09-30] MEDS: MULTIVITAMINS,THER W-MINERALS TABLET NG SCH (09:45)
[2022-09-30] MEDS: FAMOTIDINE 20MG/2ML VIAL IV SCH (09:45)
[2022-09-30] MEDS: DOCUSATE SODIUM SUGAR FREE 100MG/10ML UDC NG SCH (09:46)
[2022-09-30 11:47] VITALS: BP 119/83
[2022-09-30] MEDS ORDERED: NA PHOS,M-B/NA PHOS,DI-BA ENEMA 118ML PR NR (12:30)
[2022-09-30 15:55] VITALS: BP 141/78
[2022-09-30] MEDS: FERROUS SULFATE 300MG/5ML UDC NG SCH (19:01)
[2022-09-30] MEDS: METOCLOPRAMIDE HCL 10MG/2ML VIAL IV SCH (19:01)
[2022-09-30 20:00] VITALS: BP 108/70
[2022-10-01] VITALS: BP 119/66
[2022-10-01] MEDS: METOCLOPRAMIDE HCL 10MG/2ML VIAL IV SCH ×3 (01:45→13:32)
[2022-10-01] MEDS: SODIUM CHL 0.45% + KCL 20MEQ/L 1,000 ML IV SCH ×3 (01:46→13:32)
[2022-10-01 04:00] VITALS: BP 134/76
[2022-10-01 06:57] LABS: BASOPHILS % 0.3 % (0.0-2.0); EOSINOPHILS % 3.2 % (0.0-5.0); HEMATOCRIT. 26.9 % (36.0-48.0); LYMPHOCYTES % 21.1 % (20.0-50.0); MEAN CORPUSCULAR HEMOGLOBIN 27.8 pg (28.0-32.0); MEAN CORPUSCULAR VOLUME 83.1 fL (81.0-99.0); MEAN PLATELET VOLUME 11.4 fl (7.4-10.4); MONOCYTES % 7.6 % (2.0-8.0); NEUTROPHILS % 67.8 % (40.0-76.0); PLATELET 90 x1000/uL (130-400); RED BLOOD CELL COUNT 3.23 mill/uL (4.2-5.4); RED CELL DISTRIBUTION WIDTH 15.9 % (11.6-14.6)
[2022-10-01] MEDS: LEVOTHYROXINE SODIUM 50MCG TABLET NG SCH (07:06)
[2022-10-01 08:00] VITALS: BP 154/84
[2022-10-01 08:00] LABS: PHOSPHORUS 2.5 mg/dL (2.5-4.9)
[2022-10-01] MEDS: FAMOTIDINE 20MG TABLET PO SCH (09:05)
[2022-10-01] MEDS: DOCUSATE SODIUM SUGAR FREE 100MG/10ML UDC NG SCH (09:05)
[2022-10-01] MEDS: FERROUS SULFATE 300MG/5ML UDC NG SCH ×2 (09:05→17:44)
[2022-10-01] MEDS: MULTIVITAMINS,THER W-MINERALS TABLET NG SCH (09:05)
[2022-10-01] MEDS ORDERED: DEXT 5% WATER 500 ML IV ONE (10:30)
[2022-10-01 12:00] VITALS: BP 128/111
[2022-10-01 16:00] VITALS: BP 119/80
[2022-10-01 20:00] VITALS: BP 136/83
[2022-10-01] MEDS: DEXTROSE 5% WATER 1,000 ML IV SCH (20:01)
[2022-10-02] VITALS (7 sets, daily range): BP systolic 111–139; BP diastolic 65–77
[2022-10-02] MEDS: LEVOTHYROXINE SODIUM 50MCG TABLET NG SCH (05:50)
[2022-10-02 09:21] LABS: BASOPHILS % 0.3 % (0.0-2.0); EOSINOPHILS % 2.3 % (0.0-5.0); HEMATOCRIT. 27.3 % (36.0-48.0); HEMOGLOBIN. 9.1 g/dL (12.0-16.0); LYMPHOCYTES % 18.1 % (20.0-50.0); MEAN CORPUSCULAR HEMOGLOBIN 27.6 pg (28.0-32.0); MEAN CORPUSCULAR VOLUME 82.8 fL (81.0-99.0); MEAN PLATELET VOLUME 10.3 fl (7.4-10.4); MONOCYTES % 7.8 % (2.0-8.0); NEUTROPHILS % 71.5 % (40.0-76.0); PLATELET 113 x1000/uL (130-400); RED CELL DISTRIBUTION WIDTH 15.8 % (11.6-14.6)
[2022-10-02] MEDS: DEXTROSE 5% WATER 1,000 ML IV SCH (09:50)
[2022-10-02] MEDS: FERROUS SULFATE 300MG/5ML UDC NG SCH ×2 (09:51→17:15)
[2022-10-02] MEDS: DOCUSATE SODIUM SUGAR FREE 100MG/10ML UDC NG SCH (09:51)
[2022-10-02] MEDS: MULTIVITAMINS,THER W-MINERALS TABLET NG SCH (09:51)
[2022-10-02] MEDS: FAMOTIDINE 20MG TABLET PO SCH (09:51)
== END 2022-10-02 22:20 | disposition home health service (06) | DRG 438 ==
LOC: ER 19:06 → MICUSO 23:02 → 3WST 09-25 05:13
PROVIDERS: ADMIT Internal Medicine; ATTEND Internal Medicine Geriatric Medicine
PROC: 0DH63UZ Insertion of Feeding Device into Stomach, Percutaneous Approach (ICD-10-PCS; principal; 2022-09-29)
DX: K85.90 Acute pancreatitis without necrosis or infection, unspecified (principal); E43 Unspecified severe protein-calorie malnutrition; G93.41 Metabolic encephalopathy; N17.9 Acute kidney failure, unspecified; I13.0 Hypertensive heart and chronic kidney disease with heart failure and stage 1 through stage 4 chronic kidney disease, or unspecified chronic kidney disease; E87.0 Hyperosmolality and hypernatremia; F02.818 Dementia in other diseases classified elsewhere, unspecified severity, with other behavioral disturbance; E87.20 Acidosis, unspecified; G93.49 Other encephalopathy; Z68.1 Body mass index [BMI] 19.9 or less, adult; R62.7 Adult failure to thrive; N18.9 Chronic kidney disease, unspecified; E03.9 Hypothyroidism, unspecified; G30.9 Alzheimer's disease, unspecified; Z66 Do not resuscitate; I50.9 Heart failure, unspecified; E86.0 Dehydration; E87.6 Hypokalemia; D50.9 Iron deficiency anemia, unspecified; D63.8 Anemia in other chronic diseases classified elsewhere; E78.1 Pure hyperglyceridemia; E78.5 Hyperlipidemia, unspecified; E87.8 Other disorders of electrolyte and fluid balance, not elsewhere classified; K56.41 Fecal impaction; L85.3 Xerosis cutis; H40.9 Unspecified glaucoma; M19.90 Unspecified osteoarthritis, unspecified site; R73.9 Hyperglycemia, unspecified; R74.01 Elevation of levels of liver transaminase levels; R74.8 Abnormal levels of other serum enzymes; R94.6 Abnormal results of thyroid function studies; Z96.653 Presence of artificial knee joint, bilateral; Z78.1 Physical restraint status; Z86.16 Personal history of COVID-19; Z79.899 Other long term (current) drug therapy
CPT/HCPCS: 36415; 36600; 71045; 74018; 74176; 74181; 76700; 76770; 80048; 80053; 80061; 80076; 82375; 82378; 82550; 82728; 82805; 83540; 83550; 83605; 83615; 83735; 84100; 84132; 84145; 84439; 84443; 84478; 85025; 86301; 87426; 99285; J0690; J0696; J1100; J1650; J2405; J2704; J2765; J3370; J3475; J3480; J3490; J7030; J7070; Q9963; A4315

== ENCOUNTER 2023-10-23 21:44 | Inpatient (IN) | payer MEDICARE ==
[~2023-10-23] VITALS: Ht 149.9 cm; Wt 55.8 kg
[2023-10-23 22:00] VITALS: PULSE 69; RESP 16
[2023-10-23] MEDS: METHYLPREDNISOLONE SOD SUCC 125MG/2ML (ACT-O-VIAL) IV STA (22:11)
[2023-10-23] MEDS ORDERED: FENTANYL 2500MCG/250ML PMX 250 ML IV ONE (22:15)
[2023-10-23] MEDS: MIDAZOLAM HCL 2 MG/2 ML VIAL IV PRN (22:38)
[2023-10-23] MEDS: MAGNESIUM 2 G PREMIX 50 ML IV ONE (22:50)
[2023-10-23 23:27] LABS: CARBON DIOXIDE 26 mEq/L (21-32); CHLORIDE 108 mEq/L (98-107); POTASSIUM 5.3 mEq/L (3.5-5.1); SODIUM 142 mEq/L (136-145)
[2023-10-23 23:28] LABS: CALCIUM 9.2 mg/dL (8.7-10.4)
[2023-10-23 23:30] LABS: PARTIAL THROMBOPLASTIN TIME < 21.0 sec (23.4-31.0); PROTHROMBIN TIME 10.9 sec (9.6-11.0)
[2023-10-23 23:32] LABS: CREATININE 1.7 mg/dL (0.6-1.0); GLUCOSE 213 mg/dL (70-105)
[2023-10-23 23:33] LABS: TROPONIN I HIGH SENSITIVITY 30 ng/L (3.0-34); UREA NITROGEN BLOOD 26 mg/dL (9-23)
[2023-10-23 23:34] LABS: ALANINE AMINOTRANSFERASE 14 IU/L (10-49); ASPARTATE AMINOTRANSFERASE 35 IU/L (<34)
[2023-10-23 23:35] LABS: BILIRUBIN TOTAL 0.9 mg/dL (0.1-1.0); PROTEIN TOTAL 7.8 g/dL (6.0-8.3)
[2023-10-24] VITALS (52 sets, daily range): BP systolic 89–141; BP diastolic 64–94; PULSE 54–95; RESP 14–29; TEMP 96–98.9
[2023-10-24] MEDS ORDERED: PROPOFOL 10MG/ML 100ML 100 ML IV SCH
[2023-10-24 00:03] LABS: LACTIC ACID 4.1 mmol/L (0.4-2.0)
[2023-10-24] MEDS: IPRATROPIUM BROMIDE (0.02%) 0.5MG/2.5ML NEB HHN STA (00:15)
[2023-10-24] MEDS: ALBUTEROL (0.083%) 2.5MG/3ML NEB HHN SCH (00:15)
[2023-10-24] MEDS: PROPOFOL 10MG/ML 100ML 100 ML IV PRN ×2 (00:38→20:57)
[2023-10-24 01:23] LABS: TROPONIN I HIGH SENSITIVITY 37 ng/L (3.0-34)
[2023-10-24 02:45] LABS: BASOPHILS % 0.1 % (0.0-2.0); HEMATOCRIT. 35.7 % (36.0-48.0); LYMPHOCYTES % 7.3 % (20.0-50.0); MEAN CORPUSCULAR HEMOGLOBIN 26.2 pg (28.0-32.0); MEAN CORPUSCULAR HGB CONC 30.9 g/dL (31.0-37.0); MEAN CORPUSCULAR VOLUME 84.8 fL (81.0-99.0); MEAN PLATELET VOLUME 9.1 fl (7.4-10.4); MONOCYTES % 4.1 % (2.0-8.0); NEUTROPHILS % 88.5 % (40.0-76.0); PLATELET 168 x1000/uL (130-400); RED BLOOD CELL COUNT 4.21 mill/uL (4.2-5.4); WHITE BLOOD COUNT 12.7 x1000/uL (4.5-11.0)
[2023-10-24] MEDS: BLOOD SUGAR DIAGNOSTIC STRIP TEST SCH (07:59)
[2023-10-24] MEDS ORDERED: ALBUTEROL (0.083%) 2.5MG/3ML NEB HHN NR (08:15)
[2023-10-24] MEDS: FENTANYL CITRATE 2,500 MCG in SODIUM CHLORIDE 0.9% 200 ML IV PRN (08:30)
[2023-10-24] MEDS ORDERED: VANCOMYCIN 1G PREMIX 200 ML IV NR (08:30)
[2023-10-24] MEDS: PANTOPRAZOLE SODIUM 40 MG/VIAL IV SCH (09:09)
[2023-10-24] MEDS: PIPERACILLIN/TAZO 3.375G/50ML 50 ML IV SCH (09:09)
[2023-10-24] MEDS: ENOXAPARIN 30MG/0.3ML SYR SUBCUT SCH (09:11)
[2023-10-24] MEDS: INSULIN LISPRO 100 UNITS/ML SUBCUT SCH (09:12)
[2023-10-24 09:15] LABS: BG BASE EXCESS -0.9 mmol/L (-2.0-2.0); BG CARBOXYHEMOGLOBIN 0.3 % (0.5-1.5); BG DEOXYHEMOGLOBIN 3.1 % (0.0-5.0); BG HCO3 ACT 23.1 mmol/L (22.0-26.0); BG METHEMOGLOBIN 0.2 % (0.0-1.5); BG OXYGEN SATURATION 96.9 % (92.0-98.5); BG OXYHEMOGLOBIN 96.4 % (94.0-97.0); BG PCO2 36.3 mmHg (35.0-45.0); BG PH 7.422 (7.350-7.450); BG PO2 91.3 mmHg (75.0-100.0); BG SAMPLE SITE RIGHT RADIAL; BG VENT MODE VENT - AC
[2023-10-24 09:50] LABS: HEMATOCRIT 33.8 % (36.0-48.0); HEMOGLOBIN 10.9 g/dL (12.0-16.0); MEAN CORPUSCULAR HGB CONC 32.3 g/dL (31.0-37.0); MEAN CORPUSCULAR VOLUME 83.6 fL (81.0-99.0); PLATELET 165 x1000/uL (130-400); RED BLOOD CELL COUNT 4.04 mill/uL (4.2-5.4); RED CELL DISTRIBUTION WIDTH 15.9 % (11.6-14.6); WHITE BLOOD COUNT 17.5 x1000/uL (4.5-11.0)
[2023-10-24 09:55] LABS: CARBON DIOXIDE 22 mEq/L (21-32); CHLORIDE 108 mEq/L (98-107); POTASSIUM 4.3 mEq/L (3.5-5.1); SODIUM 140 mEq/L (136-145)
[2023-10-24 09:56] LABS: CALCIUM 9.1 mg/dL (8.7-10.4)
[2023-10-24 10:01] LABS: CREATININE 1.4 mg/dL (0.6-1.0); GLUCOSE 132 mg/dL (70-105); UREA NITROGEN BLOOD 26 mg/dL (9-23)
[2023-10-24 11:18] LABS: IRON 18 ug/dL (50-170); TRIGLYCERIDE 111 mg/dL (0-150)
[2023-10-24 11:19] LABS: LDL CHOLESTEROL 121 mg/dL (5-100)
[2023-10-24 11:20] LABS: CHOLESTEROL 193 mg/dL (<200); HDL CHOLESTEROL 62 mg/dL (>65)
[2023-10-24] MEDS: VANCOMYCIN 1.25GM PMX (XELLIA) 250 ML IV SCH (11:20)
[2023-10-24 11:21] LABS: TOTAL IRON BINDING CAPACITY 252 ug/dl (250-425)
[2023-10-24 11:23] LABS: T4 FREE 1.21 ng/dL (0.89-1.76); THYROID STIMULATING HORMONE 1.84 uIU/mL (0.55-4.78)
[2023-10-24 11:33] LABS: FOLIC ACID (FOLATE) SERUM > 20.00 ng/mL (>5.38)
[2023-10-24 11:46] LABS: BG BASE EXCESS -1.4 mmol/L (-2.0-2.0); BG CARBOXYHEMOGLOBIN 0.3 % (0.5-1.5); BG DEOXYHEMOGLOBIN 7.2 % (0.0-5.0); BG FRACTION INSPIRED OXYGEN 100; BG HCO3 ACT 22.5 mmol/L (22.0-26.0); BG METHEMOGLOBIN 0.3 % (0.0-1.5); BG OXYGEN SATURATION 92.8 % (92.0-98.5); BG OXYHEMOGLOBIN 92.2 % (94.0-97.0); BG PCO2 35.2 mmHg (35.0-45.0); BG PH 7.424 (7.350-7.450); BG SAMPLE SITE RIGHT RADIAL; BG TOTAL HEMOGLOBIN 12.4 g/dL (12.0-18.0); BG TOTAL RESPIRATORY RATE 17 b/min; BG VENT MODE VENT - AC
[2023-10-24 12:42] LABS: CREATINE KINASE MB FRACTION 1.7 ng/mL (0.5-3.6)
[2023-10-24 13:06] LABS: CLARITY URINE CLEAR (CLEAR); COLOR URINE YELLOW (YELLOW); GLUCOSE URINE NEGATIVE (NEGATIVE); KETONES URINE NEGATIVE (NEGATIVE); LEUKOCYTE ESTERASE URINE NEGATIVE (NEGATIVE); NITRITE URINE NEGATIVE (NEGATIVE); OCCULT BLOOD URINE NEGATIVE (NEGATIVE); PH URINE 5.5 (4.5-8.0); PROTEIN URINE 1+ (NEGATIVE); SPECIFIC GRAVITY URINE 1.016 (1.005-1.030); UROBILINOGEN URINE 0.2 E.U./dL (0.2-1.0)
[2023-10-24] MEDS: IPRATROPIUM/ALBUTEROL 0.5-3(2.5)MG/3ML NEB HHN SCH (13:43)
[2023-10-24 13:58] LABS: *AMPHETAMINES SCREEN URINE NEGATIVE (NEGATIVE); *BARBITURATES SCREEN URINE NEGATIVE (NEGATIVE); *BENZODIAZEPINES SCREEN URINE PRESUMPTIVE POSITIVE (NEGATIVE); *COCAINE SCREEN URINE NEGATIVE (NEGATIVE); CANNABINOID URINE SCREEN NEGATIVE (NEGATIVE); ECSTASY MDMA SCREEN URINE NEGATIVE (NEGATIVE); METHADONE URINE SCREEN Neg (NEGATIVE); OPIATES URINE SCREEN NEGATIVE (NEGATIVE); PHENCYCLIDINE URINE SCREEN NEGATIVE (NEGATIVE)
[2023-10-24 14:08] LABS: SQUAMOUS EPITHELIAL CELL URINE 1+ /lpf (RARE/1+)
[2023-10-24 14:09] LABS: BACTERIA URINE 1+; RBC URINE 0-2 /hpf (0-2)
[2023-10-24 14:11] LABS: WBC URINE 0-2 /hpf (0-2)
[2023-10-24] MEDS: PIPERACILLIN/TAZO 3.375G/50ML IV SCH (15:36)
[2023-10-24] MEDS: METHYLPREDNISOLONE SOD SUCC 40MG/ML (ACT-O-VIAL) IV SCH (17:28)
[2023-10-24 18:50] LABS: CREATINE KINASE MB FRACTION 1.2 ng/mL (0.5-3.6)
[2023-10-24] MEDS: SODIUM CHLORIDE 3% FOR INH 4ML NEB INH NR (20:30)
[2023-10-24] MEDS ORDERED: NOREPINEPHRINE 8MG/250ML PMX 250 ML IV PRN (23:30)
[2023-10-25] VITALS (106 sets, daily range): BP systolic 89–149; BP diastolic 64–98; PULSE 65–100; RESP 14–34; TEMP 97.5–98.1
[2023-10-25 01:08] LABS: CREATINE KINASE MB FRACTION 0.7 ng/mL (0.5-3.6)
[2023-10-25 05:12] LABS: HEMATOCRIT. 30.9 % (36.0-48.0); HEMOGLOBIN. 10.1 g/dL (12.0-16.0); MEAN CORPUSCULAR HEMOGLOBIN 27.3 pg (28.0-32.0); MEAN CORPUSCULAR HGB CONC 32.8 g/dL (31.0-37.0); MEAN CORPUSCULAR VOLUME 83.2 fL (81.0-99.0); MEAN PLATELET VOLUME 9.5 fl (7.4-10.4); PLATELET 140 x1000/uL (130-400); RED BLOOD CELL COUNT 3.71 mill/uL (4.2-5.4); RED CELL DISTRIBUTION WIDTH 15.9 % (11.6-14.6); WHITE BLOOD COUNT 15.4 x1000/uL (4.5-11.0)
[2023-10-25 05:18] LABS: CALCIUM 8.9 mg/dL (8.7-10.4); POTASSIUM 4.2 mEq/L (3.5-5.1)
[2023-10-25 05:24] LABS: DIFFERENTIAL COMMENT 1
[2023-10-25] MEDS: VANCOMYCIN 500MG PREMIX 100 ML IV SCH (08:41)
[2023-10-25 08:52] LABS: BG BASE EXCESS -3.1 mmol/L (-2.0-2.0); BG CARBOXYHEMOGLOBIN 0.2 % (0.5-1.5); BG DEOXYHEMOGLOBIN 1.3 % (0.0-5.0); BG FRACTION INSPIRED OXYGEN 80; BG HCO3 ACT 19.9 mmol/L (22.0-26.0); BG OXYGEN SATURATION 98.7 % (92.0-98.5); BG OXYHEMOGLOBIN 98.5 % (94.0-97.0); BG PCO2 29.2 mmHg (35.0-45.0); BG PH 7.452 (7.350-7.450); BG PO2 167.5 mmHg (75.0-100.0); BG SAMPLE SITE RIGHT RADIAL; BG VENT MODE VENT - AC
[2023-10-25 11:14] LABS: ANISOCYTOSIS 1+; PLATELET ESTIMATE NORMAL
[2023-10-25] MEDS: AZITHROMYCIN 500MG/250ML 250 ML IV SCH (11:32)
[2023-10-25] MEDS: CEFTRIAXONE 1GM/50ML 50 ML IV SCH (11:33)
[2023-10-25] MEDS: METHYLPREDNISOLONE SOD SUCC 125MG/2ML (ACT-O-VIAL) IV SCH (11:48)
[2023-10-25] MEDS: LACTULOSE 20G/30ML UDC NG PRN (17:17)
[2023-10-25] MEDS: LORAZEPAM 0.5MG TABLET PO PRN (19:46)
[2023-10-25] MEDS ORDERED: MORPHINE SULFATE 2 MG/ML CPJ (NOT FOR IM USE) IV PRN (20:00)
[2023-10-25] MEDS: LORAZEPAM 2MG/ML INJ IV PRN (20:11)
[2023-10-25] MEDS ORDERED: NALOXONE HCL 0.4MG/ML VIAL IV PRN (20:15)
[2023-10-26] VITALS (110 sets, daily range): BP systolic 99–142; BP diastolic 60–101; PULSE 72–104; RESP 10–29; TEMP 98.1–99.2
[2023-10-26 05:13] LABS: CHLORIDE 108 mEq/L (98-107); POTASSIUM 3.8 mEq/L (3.5-5.1); SODIUM 142 mEq/L (136-145)
[2023-10-26 05:14] LABS: CARBON DIOXIDE 22 mEq/L (21-32)
[2023-10-26 05:15] LABS: CALCIUM 8.9 mg/dL (8.7-10.4)
[2023-10-26 05:18] LABS: HEMATOCRIT 30.6 % (36.0-48.0); HEMOGLOBIN 10.3 g/dL (12.0-16.0); MEAN CORPUSCULAR HEMOGLOBIN 27.8 pg (28.0-32.0); MEAN CORPUSCULAR HGB CONC 33.5 g/dL (31.0-37.0); MEAN CORPUSCULAR VOLUME 82.9 fL (81.0-99.0); PLATELET 149 x1000/uL (130-400); RED BLOOD CELL COUNT 3.69 mill/uL (4.2-5.4); RED CELL DISTRIBUTION WIDTH 16.4 % (11.6-14.6); WHITE BLOOD COUNT 16.6 x1000/uL (4.5-11.0)
[2023-10-26 05:19] LABS: CREATININE 2.3 mg/dL (0.6-1.0); GLUCOSE 163 mg/dL (70-105)
[2023-10-26 05:20] LABS: UREA NITROGEN BLOOD 52 mg/dL (9-23)
[2023-10-26 05:22] LABS: PHOSPHORUS 2.6 mg/dL (2.5-4.9)
[2023-10-26] MEDS: METHYLPREDNISOLONE SOD SUCC 40MG/ML (ACT-O-VIAL) IV SCH (09:06)
[2023-10-26 09:48] LABS: BG BASE EXCESS -0.7 mmol/L (-2.0-2.0); BG CARBOXYHEMOGLOBIN 0.3 % (0.5-1.5); BG DEOXYHEMOGLOBIN 4.4 % (0.0-5.0); BG FRACTION INSPIRED OXYGEN 40; BG HCO3 ACT 21.4 mmol/L (22.0-26.0); BG METHEMOGLOBIN 0.2 % (0.0-1.5); BG OXYGEN SATURATION 95.6 % (92.0-98.5); BG OXYHEMOGLOBIN 95.1 % (94.0-97.0); BG PCO2 27.6 mmHg (35.0-45.0); BG PH 7.508 (7.350-7.450); BG PO2 78.7 mmHg (75.0-100.0); BG SAMPLE SITE RIGHT RADIAL; BG TOTAL HEMOGLOBIN 10.8 g/dL (12.0-18.0); BG VENT MODE VENT - SIMV
[2023-10-27] VITALS (74 sets, daily range): BP systolic 110–135; BP diastolic 70–106; PULSE 72–98; RESP 15–27; TEMP 97.4–99.7; O2SAT 93–99
[2023-10-27 05:25] LABS: HEMATOCRIT 28.7 % (36.0-48.0); HEMATOCRIT. 28.7 % (36.0-48.0); HEMOGLOBIN 9.5 g/dL (12.0-16.0); HEMOGLOBIN. 9.5 g/dL (12.0-16.0); MEAN CORPUSCULAR HEMOGLOBIN 27.4 pg (28.0-32.0); MEAN CORPUSCULAR HGB CONC 33.2 g/dL (31.0-37.0); MEAN CORPUSCULAR VOLUME 82.7 fL (81.0-99.0); MEAN PLATELET VOLUME 9.7 fl (7.4-10.4); PLATELET 137 x1000/uL (130-400); RED BLOOD CELL COUNT 3.47 mill/uL (4.2-5.4); WHITE BLOOD COUNT 12.3 x1000/uL (4.5-11.0)
[2023-10-27 05:26] LABS: DIFFERENTIAL COMMENT 1
[2023-10-27 05:32] LABS: CALCIUM 8.7 mg/dL (8.7-10.4); CARBON DIOXIDE 24 mEq/L (21-32); CHLORIDE 110 mEq/L (98-107); POTASSIUM 3.9 mEq/L (3.5-5.1); SODIUM 145 mEq/L (136-145)
[2023-10-27 05:37] LABS: GLUCOSE 174 mg/dL (70-105)
[2023-10-27 05:38] LABS: UREA NITROGEN BLOOD 62 mg/dL (9-23)
[2023-10-27 05:40] LABS: PHOSPHORUS 2.8 mg/dL (2.5-4.9)
[2023-10-27 06:24] LABS: PLASMA CELLS 1 %; PLATELET ESTIMATE NORMAL
[2023-10-27 06:29] LABS: TARGET CELLS 1+
[2023-10-27 06:30] LABS: OVALOCYTES 1+
[2023-10-27 09:06] LABS: BG BASE EXCESS 0.7 mmol/L (-2.0-2.0); BG CARBOXYHEMOGLOBIN 0.3 % (0.5-1.5); BG DEOXYHEMOGLOBIN 4.8 % (0.0-5.0); BG FRACTION INSPIRED OXYGEN 40; BG HCO3 ACT 22.7 mmol/L (22.0-26.0); BG METHEMOGLOBIN 0.3 % (0.0-1.5); BG OXYGEN SATURATION 95.2 % (92.0-98.5); BG OXYHEMOGLOBIN 94.6 % (94.0-97.0); BG PH 7.512 (7.350-7.450); BG PO2 73.9 mmHg (75.0-100.0); BG SAMPLE SITE RIGHT RADIAL; BG TOTAL HEMOGLOBIN 12.7 g/dL (12.0-18.0); BG VENT MODE VENT - SIMV
[2023-10-27] MEDS: METHYLPREDNISOLONE SOD SUCC 40MG/ML (ACT-O-VIAL) IV SCH (09:24)
[2023-10-27] MEDS: SODIUM CHLORIDE 0.45% 1,000 ML IV ONE (10:52)
[2023-10-27 12:06] LABS: BG BASE EXCESS -0.4 mmol/L (-2.0-2.0); BG CARBOXYHEMOGLOBIN 0.3 % (0.5-1.5); BG DEOXYHEMOGLOBIN 4.6 % (0.0-5.0); BG FRACTION INSPIRED OXYGEN 35; BG HCO3 ACT 22.4 mmol/L (22.0-26.0); BG METHEMOGLOBIN 0.3 % (0.0-1.5); BG OXYGEN SATURATION 95.4 % (92.0-98.5); BG OXYHEMOGLOBIN 94.8 % (94.0-97.0); BG PCO2 30.5 mmHg (35.0-45.0); BG PH 7.484 (7.350-7.450); BG SAMPLE SITE RIGHT RADIAL; BG TOTAL HEMOGLOBIN 10.5 g/dL (12.0-18.0); BG TOTAL RESPIRATORY RATE 24 b/min
[2023-10-27 12:15] LABS: BG VENT MODE VENT - CPAP
[2023-10-28] VITALS (26 sets, daily range): BP systolic 124–166; BP diastolic 81–153; PULSE 76–114; RESP 17–30; TEMP 97.4–98.1; O2SAT 92–100
[2023-10-28] MEDS: SODIUM CHLORIDE 3% FOR INH 4ML NEB INH SCH (01:41)
[2023-10-28 04:50] LABS: HEMATOCRIT. 29.1 % (36.0-48.0); HEMOGLOBIN. 9.6 g/dL (12.0-16.0); MEAN CORPUSCULAR HEMOGLOBIN 27.3 pg (28.0-32.0); MEAN CORPUSCULAR HGB CONC 32.8 g/dL (31.0-37.0); MEAN CORPUSCULAR VOLUME 83.3 fL (81.0-99.0); MEAN PLATELET VOLUME 10.1 fl (7.4-10.4); PLATELET 149 x1000/uL (130-400); RED CELL DISTRIBUTION WIDTH 15.9 % (11.6-14.6)
[2023-10-28 04:54] LABS: CALCIUM 8.7 mg/dL (8.7-10.4); POTASSIUM 3.7 mEq/L (3.5-5.1)
[2023-10-28 05:00] LABS: CREATININE 1.6 mg/dL (0.6-1.0)
[2023-10-28 05:19] LABS: DIFFERENTIAL COMMENT 1
[2023-10-28] MEDS: METHYLPREDNISOLONE SOD SUCC 40MG/ML (ACT-O-VIAL) IV SCH (09:06)
[2023-10-28] MEDS: IPRATROPIUM BROMIDE (0.02%) 0.5MG/2.5ML NEB HHN SCH (09:53)
[2023-10-28 09:56] LABS: ANISOCYTOSIS 1+; NUCLEATED RED BLOOD CELLS 1 /100 WBC; PLATELET ESTIMATE NORMAL
[2023-10-28 11:42] LABS: BG BASE EXCESS 1.3 mmol/L (-2.0-2.0); BG CARBOXYHEMOGLOBIN 0.3 % (0.5-1.5); BG FRACTION INSPIRED OXYGEN 32; BG HCO3 ACT 24.6 mmol/L (22.0-26.0); BG METHEMOGLOBIN 0.1 % (0.0-1.5); BG OXYHEMOGLOBIN 88.6 % (94.0-97.0); BG PCO2 34.4 mmHg (35.0-45.0); BG PH 7.473 (7.350-7.450); BG PO2 54.7 mmHg (75.0-100.0); BG SAMPLE SITE LEFT RADIAL; BG TOTAL HEMOGLOBIN 10.2 g/dL (12.0-18.0); BG VENT MODE NASAL CANNULA
[2023-10-28] MEDS ORDERED: ACETYLCYSTEINE 200MG/ML 20% VIAL 4ML INH NR (13:15)
[2023-10-28] MEDS: FUROSEMIDE 40MG/4ML VIAL IVP NR (13:24)
[2023-10-28] MEDS ORDERED: ACETYLCYSTEINE 200MG/ML 20% VIAL 4ML INH SCH (14:00)
[2023-10-28 14:36] LABS: BG BASE EXCESS -0.7 mmol/L (-2.0-2.0); BG CARBOXYHEMOGLOBIN 0.3 % (0.5-1.5); BG DEOXYHEMOGLOBIN 1.5 % (0.0-5.0); BG FRACTION INSPIRED OXYGEN 100; BG HCO3 ACT 23.5 mmol/L (22.0-26.0); BG METHEMOGLOBIN 0.2 % (0.0-1.5); BG OXYGEN SATURATION 98.5 % (92.0-98.5); BG PCO2 37.1 mmHg (35.0-45.0); BG PH 7.419 (7.350-7.450); BG PO2 153.3 mmHg (75.0-100.0); BG SAMPLE SITE RIGHT RADIAL; BG VENT MODE HIGH FLOW
[2023-10-28] MEDS: OLANZAPINE 10 MG/VIAL IM NR (16:58)
[2023-10-28] MEDS ORDERED: ACETYLCYSTEINE 200MG/ML 20% VIAL 10ML NG SCH (21:00)
[2023-10-28] MEDS: QUETIAPINE FUMARATE 25MG TABLET PO NR (21:00)
[2023-10-29] VITALS (28 sets, daily range): BP systolic 117–145; BP diastolic 68–95; PULSE 77–94; RESP 15–29; TEMP 97.5–98.6; O2SAT 98–100
[2023-10-29 05:26] LABS: HEMATOCRIT 28.7 % (36.0-48.0); HEMATOCRIT. 28.7 % (36.0-48.0); HEMOGLOBIN 9.6 g/dL (12.0-16.0); HEMOGLOBIN. 9.6 g/dL (12.0-16.0); MEAN CORPUSCULAR HEMOGLOBIN 27.6 pg (28.0-32.0); MEAN CORPUSCULAR HGB CONC 33.4 g/dL (31.0-37.0); MEAN CORPUSCULAR VOLUME 82.7 fL (81.0-99.0); MEAN PLATELET VOLUME 10.3 fl (7.4-10.4); PLATELET 148 x1000/uL (130-400); RED BLOOD CELL COUNT 3.47 mill/uL (4.2-5.4); WHITE BLOOD COUNT 11.4 x1000/uL (4.5-11.0)
[2023-10-29 05:33] LABS: DIFFERENTIAL COMMENT 1
[2023-10-29 05:41] LABS: CALCIUM 8.6 mg/dL (8.7-10.4); CARBON DIOXIDE 29 mEq/L (21-32); CHLORIDE 114 mEq/L (98-107); POTASSIUM 3.7 mEq/L (3.5-5.1); SODIUM 152 mEq/L (136-145)
[2023-10-29 05:47] LABS: CREATININE 1.6 mg/dL (0.6-1.0); GLUCOSE 140 mg/dL (70-105); UREA NITROGEN BLOOD 43 mg/dL (9-23)
[2023-10-29 05:49] LABS: PHOSPHORUS 2.7 mg/dL (2.5-4.9)
[2023-10-29 06:38] LABS: NUCLEATED RED BLOOD CELLS 1 /100 WBC
[2023-10-29 06:39] LABS: OVALOCYTES 1+; PLATELET ESTIMATE NORMAL; TEAR DROP CELLS 1+
[2023-10-29 09:01] LABS: BG BASE EXCESS 4.6 mmol/L (-2.0-2.0); BG CARBOXYHEMOGLOBIN 0.3 % (0.5-1.5); BG DEOXYHEMOGLOBIN 1.5 % (0.0-5.0); BG FRACTION INSPIRED OXYGEN 80; BG HCO3 ACT 27.7 mmol/L (22.0-26.0); BG METHEMOGLOBIN 0.2 % (0.0-1.5); BG OXYGEN SATURATION 98.5 % (92.0-98.5); BG PCO2 35.6 mmHg (35.0-45.0); BG PH 7.509 (7.350-7.450); BG PO2 140.6 mmHg (75.0-100.0); BG SAMPLE SITE LEFT RADIAL; BG TOTAL HEMOGLOBIN 10.2 g/dL (12.0-18.0); BG VENT MODE HIGH FLOW
[2023-10-29] MEDS: AZITHROMYCIN 250 MG TABLET NG NR (10:08)
[2023-10-29] MEDS: DEXTROSE 5% WATER 1,000 ML IV SCH (11:27)
[2023-10-29] MEDS: FUROSEMIDE 40MG/4ML VIAL IVP NR (15:36)
[2023-10-29] MEDS: ACETAZOLAMIDE SODIUM 500MG/VIAL IV NR (17:11)
[2023-10-30] VITALS (45 sets, daily range): BP systolic 101–139; BP diastolic 67–96; PULSE 68–93; RESP 15–29; TEMP 96.8–98.3; O2SAT 98–100
[2023-10-30 03:44] LABS: BASOPHILS % 0.1 % (0.0-2.0); EOSINOPHILS % 0.1 % (0.0-5.0); HEMATOCRIT. 29.8 % (36.0-48.0); HEMOGLOBIN. 9.2 g/dL (12.0-16.0); LYMPHOCYTES % 7.3 % (20.0-50.0); MEAN CORPUSCULAR HEMOGLOBIN 26.4 pg (28.0-32.0); MEAN CORPUSCULAR VOLUME 85.1 fL (81.0-99.0); MEAN PLATELET VOLUME 10.1 fl (7.4-10.4); MONOCYTES % 6.2 % (2.0-8.0); NEUTROPHILS % 86.3 % (40.0-76.0); PLATELET 145 x1000/uL (130-400); RED BLOOD CELL COUNT 3.49 mill/uL (4.2-5.4); RED CELL DISTRIBUTION WIDTH 16.6 % (11.6-14.6); WHITE BLOOD COUNT 11.8 x1000/uL (4.5-11.0)
[2023-10-30 05:13] LABS: CARBON DIOXIDE 29 mEq/L (21-32); CHLORIDE 114 mEq/L (98-107); POTASSIUM 3.7 mEq/L (3.5-5.1); SODIUM 151 mEq/L (136-145)
[2023-10-30 05:14] LABS: CALCIUM 8.9 mg/dL (8.7-10.4)
[2023-10-30 05:18] LABS: CREATININE 1.4 mg/dL (0.6-1.0)
[2023-10-30 05:19] LABS: GLUCOSE 74 mg/dL (70-105); UREA NITROGEN BLOOD 41 mg/dL (9-23)
[2023-10-30] MEDS: DEXTROSE 50% WATER 50ML SYRINGE IV PRN (05:52)
[2023-10-30] MEDS: PANTOPRAZOLE SODIUM 40 MG/VIAL IV SCH (09:10)
[2023-10-30 09:32] LABS: BG BASE EXCESS 3.5 mmol/L (-2.0-2.0); BG CARBOXYHEMOGLOBIN 0.3 % (0.5-1.5); BG DEOXYHEMOGLOBIN 1.7 % (0.0-5.0); BG FRACTION INSPIRED OXYGEN 60; BG HCO3 ACT 26.9 mmol/L (22.0-26.0); BG METHEMOGLOBIN 0.2 % (0.0-1.5); BG OXYGEN SATURATION 98.3 % (92.0-98.5); BG OXYHEMOGLOBIN 97.8 % (94.0-97.0); BG PCO2 35.8 mmHg (35.0-45.0); BG PH 7.493 (7.350-7.450); BG PO2 129.3 mmHg (75.0-100.0); BG SAMPLE SITE RIGHT RADIAL; BG TOTAL HEMOGLOBIN 10.1 g/dL (12.0-18.0); BG VENT MODE HIGH FLOW
[2023-10-30 10:21] LABS: HEMOGLOBIN 9.6 g/dL (12.0-16.0)
[2023-10-30] MEDS: DONEPEZIL HCL 10MG TABLET PO NR (11:08)
[2023-10-30] MEDS: MEMANTINE HCL 5MG TABLET NG SCH (21:14)
[2023-10-31] VITALS (22 sets, daily range): BP systolic 123–136; BP diastolic 61–97; PULSE 72–93; RESP 15–24; TEMP 97.5–98.5; O2SAT 94–99
[2023-10-31] MEDS: IPRATROPIUM BROMIDE (0.02%) 0.5MG/2.5ML NEB HHN SCH (20:12)
[2023-11-01] VITALS (14 sets, daily range): BP systolic 112–148; BP diastolic 77–103; PULSE 78–101; RESP 16–26; TEMP 97.3–97.6; O2SAT 98–99
[2023-11-01 06:38] LABS: BASOPHILS % 0.3 % (0.0-2.0); DIFFERENTIAL COMMENT 0; EOSINOPHILS % 2.7 % (0.0-5.0); HEMATOCRIT. 28.3 % (36.0-48.0); HEMOGLOBIN. 9.2 g/dL (12.0-16.0); LYMPHOCYTES % 14.8 % (20.0-50.0); MEAN CORPUSCULAR HEMOGLOBIN 26.8 pg (28.0-32.0); MEAN CORPUSCULAR HGB CONC 32.4 g/dL (31.0-37.0); MEAN CORPUSCULAR VOLUME 82.7 fL (81.0-99.0); MEAN PLATELET VOLUME 10.4 fl (7.4-10.4); MONOCYTES % 6.4 % (2.0-8.0); NEUTROPHILS % 75.8 % (40.0-76.0); PLATELET 134 x1000/uL (130-400); RED BLOOD CELL COUNT 3.42 mill/uL (4.2-5.4); RED CELL DISTRIBUTION WIDTH 16.4 % (11.6-14.6); WHITE BLOOD COUNT 9.8 x1000/uL (4.5-11.0)
[2023-11-01 06:47] LABS: POTASSIUM 3.8 mEq/L (3.5-5.1)
[2023-11-01 06:48] LABS: CALCIUM 8.6 mg/dL (8.7-10.4)
[2023-11-01 06:53] LABS: CREATININE 1.4 mg/dL (0.6-1.0)
[2023-11-01] MEDS ORDERED: IPRATROPIUM/ALBUTEROL 0.5-3(2.5)MG/3ML NEB HHN PRN (10:15)
[2023-11-01 16:46] LABS: BG BASE EXCESS 2.8 mmol/L (-2.0-2.0); BG CARBOXYHEMOGLOBIN 0.1 % (0.5-1.5); BG FRACTION INSPIRED OXYGEN 21; BG HCO3 ACT 24.7 mmol/L (22.0-26.0); BG METHEMOGLOBIN 0.3 % (0.0-1.5); BG OXYHEMOGLOBIN 87.6 % (94.0-97.0); BG PCO2 28.8 mmHg (35.0-45.0); BG PH 7.552 (7.350-7.450); BG PO2 50.4 mmHg (75.0-100.0); BG SAMPLE SITE RIGHT BRACHIAL; BG TOTAL HEMOGLOBIN 10.1 g/dL (12.0-18.0); BG VENT MODE ROOM AIR
[2023-11-01] MEDS: RISPERIDONE 0.25MG TABLET PO NR (17:30)
[2023-11-01 19:06] LABS: BG BASE EXCESS 1.4 mmol/L (-2.0-2.0); BG CARBOXYHEMOGLOBIN 0.1 % (0.5-1.5); BG DEOXYHEMOGLOBIN 10.3 % (0.0-5.0); BG FRACTION INSPIRED OXYGEN 21; BG METHEMOGLOBIN 0.1 % (0.0-1.5); BG OXYGEN SATURATION 89.7 % (92.0-98.5); BG OXYHEMOGLOBIN 89.5 % (94.0-97.0); BG PCO2 26.3 mmHg (35.0-45.0); BG PO2 51.1 mmHg (75.0-100.0); BG SAMPLE SITE RIGHT RADIAL; BG TOTAL HEMOGLOBIN 9.7 g/dL (12.0-18.0); BG VENT MODE ROOM AIR
[2023-11-02] VITALS (12 sets, daily range): BP systolic 94–127; BP diastolic 66–88; PULSE 65–84; RESP 15–30; TEMP 97.6–98.6
[2023-11-02 07:17] LABS: CARBON DIOXIDE 23 mEq/L (21-32); CHLORIDE 111 mEq/L (98-107); POTASSIUM 3.7 mEq/L (3.5-5.1); SODIUM 141 mEq/L (136-145)
[2023-11-02 07:21] LABS: CREATININE 1.4 mg/dL (0.6-1.0)
[2023-11-02 07:22] LABS: GLUCOSE 95 mg/dL (70-105)
[2023-11-02 07:23] LABS: UREA NITROGEN BLOOD 25 mg/dL (9-23)
[2023-11-02 09:20] LABS: HEMATOCRIT. 24.1 % (36.0-48.0); HEMOGLOBIN. 8.2 g/dL (12.0-16.0); MEAN CORPUSCULAR HEMOGLOBIN 27.9 pg (28.0-32.0); MEAN CORPUSCULAR HGB CONC 34.1 g/dL (31.0-37.0); MEAN CORPUSCULAR VOLUME 81.7 fL (81.0-99.0); PLATELET 135 x1000/uL (130-400); RED BLOOD CELL COUNT 2.95 mill/uL (4.2-5.4); RED CELL DISTRIBUTION WIDTH 15.7 % (11.6-14.6); WHITE BLOOD COUNT 8.5 x1000/uL (4.5-11.0)
[2023-11-02 09:23] LABS: DIFFERENTIAL COMMENT 1
[2023-11-02 15:36] LABS: ANISOCYTOSIS 1+; PLATELET ESTIMATE NORMAL
[2023-11-03] VITALS (8 sets, daily range): BP systolic 103–131; BP diastolic 70–90; PULSE 64–79; RESP 17–27; TEMP 97.8–98.2; O2SAT 96
[2023-11-03] MEDS: MELATONIN 3MG TABLET PO SCH (02:30)
[2023-11-03] MEDS ORDERED: IRON SUCROSE COMPLEX 100 MG/5 ML ML IV ONE (10:15)
[2023-11-03] MEDS ORDERED: IRON-11 PO (10:41)
[2023-11-03] MEDS ORDERED: CEFP500T4 MT (10:41)
[2023-11-03] MEDS ORDERED: MEMA1CAP3 PO (10:41)
[2023-11-03] MEDS: IRON SUCROSE COMPLEX 100 MG/5 ML ML IV NR (12:03)
== END 2023-11-03 17:25 | disposition home health service (06) | DRG 871 ==
LOC: ER 21:44 → MICUNO 10-24 01:23 → 5EST 10-31 02:23
PROVIDERS: ADMIT Internal Medicine Geriatric Medicine; ATTEND Internal Medicine Geriatric Medicine
PROC: 5A09357 Assistance with Respiratory Ventilation, Less than 24 Consecutive Hours, Continuous Positive Airway Pressure (ICD-10-PCS; 2023-10-23)
PROC: 5A1945Z Respiratory Ventilation, 24-96 Consecutive Hours (ICD-10-PCS; principal; 2023-10-24)
PROC: 0BH17EZ Insertion of Endotracheal Airway into Trachea, Via Natural or Artificial Opening (ICD-10-PCS; 2023-10-24)
PROC: 5A0945A Assistance with Respiratory Ventilation, 24-96 Consecutive Hours, High Flow/Velocity Cannula (ICD-10-PCS; 2023-10-30)
DX: A41.9 Sepsis, unspecified organism (principal); G92.8 Other toxic encephalopathy; L89.93 Pressure ulcer of unspecified site, stage 3; J69.0 Pneumonitis due to inhalation of food and vomit; J96.01 Acute respiratory failure with hypoxia; J96.02 Acute respiratory failure with hypercapnia; N17.0 Acute kidney failure with tubular necrosis; I21.A1 Myocardial infarction type 2; I13.0 Hypertensive heart and chronic kidney disease with heart failure and stage 1 through stage 4 chronic kidney disease, or unspecified chronic kidney disease; J44.0 Chronic obstructive pulmonary disease with (acute) lower respiratory infection; I50.32 Chronic diastolic (congestive) heart failure; E87.0 Hyperosmolality and hypernatremia; E87.1 Hypo-osmolality and hyponatremia; I45.2 Bifascicular block; R65.20 Severe sepsis without septic shock; D50.9 Iron deficiency anemia, unspecified; N18.1 Chronic kidney disease, stage 1; E03.9 Hypothyroidism, unspecified; Z96.653 Presence of artificial knee joint, bilateral; E16.2 Hypoglycemia, unspecified; Z20.822 Contact with and (suspected) exposure to COVID-19; F02.80 Dementia in other diseases classified elsewhere, unspecified severity, without behavioral disturbance, psychotic disturbance, mood disturbance, and anxiety; G30.9 Alzheimer's disease, unspecified; I07.1 Rheumatic tricuspid insufficiency; R73.9 Hyperglycemia, unspecified; R13.10 Dysphagia, unspecified; H91.10 Presbycusis, unspecified ear; H54.7 Unspecified visual loss; U09.9 Post COVID-19 condition, unspecified; Z79.899 Other long term (current) drug therapy; Z78.1 Physical restraint status; Z93.1 Gastrostomy status
CPT/HCPCS: 31500; 36415; 36600; 71045; 80048; 80053; 80061; 80305; 81003; 82375; 82550; 82553; 82746; 82803; 82805; 82962; 83036; 83540; 83550; 83605; 83735; 83880; 84100; 84145; 84439; 84443; 84478; 84484; 85014; 85018; 85025; 85027; 85379; 87070; 87420; 87426; 87804; 92610; 93005; 93306; 93970; 94002; 94003; 94640; 97161; 99291; A6261; C1893; C9113; J0456; J0696; J1120; J1650; J1815; J1940; J2060; J2250; J2543; J2704; J2920; J2930; J3010; J3370; J3475; J3490; J7070

== ENCOUNTER 2023-11-12 01:07 | Inpatient (IN) | payer MEDICARE ==
[2023-11-12] VITALS (47 sets, daily range): BP systolic 94–138; BP diastolic 67–91; PULSE 57–90; RESP 14–33; TEMP 94–98.4
[~2023-11-12] VITALS: Ht 170.2 cm; Wt 57.4 kg
[~2023-11-12 01:07] MED LIST changes: +CEFP500T4 MT; -CYCL5TAB PO; -ENOX40SY27 SQ; +IRON-11 PO; +MEMA1CAP3 PO; -TRAM50TA94 PO; -VIC PO
[2023-11-12] MEDS: ETOMIDATE 2MG/ML 10ML VIAL IV ONE (01:16)
[2023-11-12] MEDS: SUCCINYLCHOLINE CHLORIDE 200MG/10ML IV ONE (01:17)
[2023-11-12] MEDS: SODIUM CHLORIDE 0.9% 1,000 ML IV ONE ×2 (01:30→03:56)
[2023-11-12] MEDS ORDERED: PIPERACILLIN/TAZO 3.375G/50ML 50 ML IV ONE (01:30)
[2023-11-12 01:40] LABS: CHLORIDE 115 mEq/L (98-107); POTASSIUM 5.1 mEq/L (3.5-5.1); SODIUM 148 mEq/L (136-145)
[2023-11-12 01:41] LABS: CARBON DIOXIDE 23 mEq/L (21-32)
[2023-11-12 01:42] LABS: BASOPHILS % 0.3 % (0.0-2.0); HEMATOCRIT. 26.9 % (36.0-48.0); HEMOGLOBIN. 8.7 g/dL (12.0-16.0); LYMPHOCYTES % 10.4 % (20.0-50.0); MEAN CORPUSCULAR HEMOGLOBIN 28.6 pg (28.0-32.0); MEAN CORPUSCULAR HGB CONC 32.2 g/dL (31.0-37.0); MEAN PLATELET VOLUME 9.2 fl (7.4-10.4); MONOCYTES % 4.5 % (2.0-8.0); NEUTROPHILS % 84.8 % (40.0-76.0); PLATELET 184 x1000/uL (130-400); RED BLOOD CELL COUNT 3.03 mill/uL (4.2-5.4); RED CELL DISTRIBUTION WIDTH 20.1 % (11.6-14.6); WHITE BLOOD COUNT 10.9 x1000/uL (4.5-11.0)
[2023-11-12 01:46] LABS: GLUCOSE 125 mg/dL (70-105); UREA NITROGEN BLOOD 28 mg/dL (9-23)
[2023-11-12] MEDS: FENTANYL CITRATE/PF 50MCG/ML 2ML VIAL IV ONE ×2 (01:55→02:00)
[2023-11-12 01:56] LABS: CREATININE 1.9 mg/dL (0.6-1.0)
[2023-11-12 01:59] LABS: LACTIC ACID 5.6 mmol/L (0.4-2.0); TROPONIN I HIGH SENSITIVITY 67 ng/L (3.0-34)
[2023-11-12 03:41] LABS: PROTHROMBIN TIME 11.2 sec (9.6-11.0)
[2023-11-12 04:09] LABS: BG BASE EXCESS -2.4 mmol/L (-2.0-2.0); BG CARBOXYHEMOGLOBIN 0.3 % (0.5-1.5); BG DEOXYHEMOGLOBIN 2.3 % (0.0-5.0); BG FRACTION INSPIRED OXYGEN 100; BG METHEMOGLOBIN 0.3 % (0.0-1.5); BG OXYGEN SATURATION 97.7 % (92.0-98.5); BG OXYHEMOGLOBIN 97.1 % (94.0-97.0); BG PCO2 42.9 mmHg (35.0-45.0); BG PH 7.348 (7.350-7.450); BG PO2 114.6 mmHg (75.0-100.0); BG SAMPLE SITE RIGHT RADIAL; BG VENT MODE VENT - AC
[2023-11-12] MEDS: PIPERACILLIN/TAZO 3.375G/50ML 50 ML IV NR (04:23)
[2023-11-12 04:40] LABS: TROPONIN I HIGH SENSITIVITY 74 ng/L (3.0-34)
[2023-11-12] MEDS: FENTANYL 2500MCG/250ML PMX 250 ML IV ONE ×2 (04:49)
[2023-11-12] MEDS: METHYLPREDNISOLONE SOD SUCC 125MG/2ML (ACT-O-VIAL) IV ONE (05:47)
[2023-11-12] MEDS: METHYLPREDNISOLONE SOD SUCC 125MG/2ML (ACT-O-VIAL) IV NR (05:48)
[2023-11-12 06:21] LABS: BASOPHILS % 0.2 % (0.0-2.0); HEMATOCRIT. 23.8 % (36.0-48.0); HEMOGLOBIN. 7.5 g/dL (12.0-16.0); LYMPHOCYTES % 13.9 % (20.0-50.0); MEAN CORPUSCULAR HEMOGLOBIN 28.5 pg (28.0-32.0); MEAN CORPUSCULAR HGB CONC 31.6 g/dL (31.0-37.0); MEAN CORPUSCULAR VOLUME 90.3 fL (81.0-99.0); MEAN PLATELET VOLUME 8.9 fl (7.4-10.4); MONOCYTES % 6.4 % (2.0-8.0); NEUTROPHILS % 79.5 % (40.0-76.0); PLATELET 123 x1000/uL (130-400); RED BLOOD CELL COUNT 2.63 mill/uL (4.2-5.4); RED CELL DISTRIBUTION WIDTH 20.2 % (11.6-14.6)
[2023-11-12] MEDS: NOREPINEPHRINE 8MG/250ML PMX 250 ML IV ONE (06:28)
[2023-11-12 06:33] LABS: CHLORIDE 118 mEq/L (98-107); POTASSIUM 4.9 mEq/L (3.5-5.1); SODIUM 148 mEq/L (136-145)
[2023-11-12 06:34] LABS: CARBON DIOXIDE 21 mEq/L (21-32)
[2023-11-12 06:39] LABS: CREATININE 1.8 mg/dL (0.6-1.0); GLUCOSE 92 mg/dL (70-105); UREA NITROGEN BLOOD 26 mg/dL (9-23)
[2023-11-12] MEDS ORDERED: DOCUSATE SODIUM 100MG CAPSULE PO PRN (08:45)
[2023-11-12] MEDS ORDERED: ACETAMINOPHEN 650MG SUPP PR PRN (08:45)
[2023-11-12] MEDS ORDERED: DIPHENHYDRAMINE 50MG/ML VIAL IV PRN (08:45)
[2023-11-12] MEDS ORDERED: ONDANSETRON HCL 4MG/2ML INJ IV PRN (08:45)
[2023-11-12] MEDS: IPRATROPIUM/ALBUTEROL 0.5-3(2.5)MG/3ML NEB HHN ONE (09:15)
[2023-11-12] MEDS: ALBUTEROL (0.083%) 2.5MG/3ML NEB HHN ONE (09:16)
[2023-11-12] MEDS: PANTOPRAZOLE SODIUM 40 MG/VIAL IV SCH (09:23)
[2023-11-12 09:28] LABS: IRON 126 ug/dL (50-170)
[2023-11-12 09:31] LABS: TOTAL IRON BINDING CAPACITY 214 ug/dl (250-425)
[2023-11-12] MEDS: DEXTROSE 5% WATER 1,000 ML IV SCH (09:33)
[2023-11-12] MEDS: PROPOFOL 10MG/ML 100ML 100 ML IV SCH (10:04)
[2023-11-12 10:26] LABS: THYROID STIMULATING HORMONE 10.54 uIU/mL (0.55-4.78)
[2023-11-12] MEDS: VANCOMYCIN 1.25GM PMX (XELLIA) 250 ML IV SCH (11:45)
[2023-11-12] MEDS ORDERED: NOREPINEPHRINE 8MG/250ML PMX 250 ML IV PRN (13:00)
[2023-11-12 15:14] LABS: BG BASE EXCESS -6.2 mmol/L (-2.0-2.0); BG CARBOXYHEMOGLOBIN 0.3 % (0.5-1.5); BG DEOXYHEMOGLOBIN 3.2 % (0.0-5.0); BG FRACTION INSPIRED OXYGEN 100; BG HCO3 ACT 20.7 mmol/L (22.0-26.0); BG METHEMOGLOBIN 0.5 % (0.0-1.5); BG OXYGEN SATURATION 96.8 % (92.0-98.5); BG PCO2 47.9 mmHg (35.0-45.0); BG PH 7.253 (7.350-7.450); BG PO2 104.3 mmHg (75.0-100.0); BG SAMPLE SITE RIGHT RADIAL; BG TOTAL HEMOGLOBIN 8.6 g/dL (12.0-18.0); BG VENT MODE VENT - AC
[2023-11-12] MEDS: PIPERACILLIN/TAZO 3.375G/50ML 50 ML IV SCH (16:12)
[2023-11-12] MEDS ORDERED: INFLUENZA VACCINE 05/PF 0.5 ML SYRINGE IM ONE (16:30)
[2023-11-12 17:31] LABS: HEMATOCRIT 27.2 % (36.0-48.0); HEMOGLOBIN 8.4 g/dL (12.0-16.0)
[2023-11-12 17:55] LABS: TROPONIN I HIGH SENSITIVITY 64 ng/L (3.0-34)
[2023-11-12] MEDS ORDERED: ENOXAPARIN 30MG/0.3ML SYR SUBCUT SCH (18:00)
[2023-11-12] MEDS: NOREPINEPHRINE 8MG/250ML PMX 250 ML IV PRN (18:51)
[2023-11-12] MEDS ORDERED: PROPOFOL 10MG/ML 100ML 100 ML IV PRN (19:00)
[2023-11-12] MEDS: FENTANYL 2500MCG/250ML PMX 250 ML IV PRN (19:47)
[2023-11-12] MEDS: IPRATROPIUM/ALBUTEROL 0.5-3(2.5)MG/3ML NEB HHN SCH (20:33)
[2023-11-12] MEDS: LEVOTHYROXINE SODIUM 100 MCG/ VIAL IV SCH (22:00)
[2023-11-13] VITALS (102 sets, daily range): BP systolic 90–131; BP diastolic 59–105; PULSE 65–106; RESP 10–33; TEMP 96.8–99.1
[2023-11-13 00:49] LABS: TROPONIN I HIGH SENSITIVITY 71 ng/L (3.0-34)
[2023-11-13 06:16] LABS: BASOPHILS % 0.1 % (0.0-2.0); HEMATOCRIT. 21.7 % (36.0-48.0); HEMOGLOBIN. 7.1 g/dL (12.0-16.0); LYMPHOCYTES % 14.2 % (20.0-50.0); MEAN CORPUSCULAR HEMOGLOBIN 27.9 pg (28.0-32.0); MEAN CORPUSCULAR HGB CONC 32.6 g/dL (31.0-37.0); MEAN CORPUSCULAR VOLUME 85.6 fL (81.0-99.0); MEAN PLATELET VOLUME 9.1 fl (7.4-10.4); MONOCYTES % 7.3 % (2.0-8.0); NEUTROPHILS % 78.4 % (40.0-76.0); PLATELET 153 x1000/uL (130-400); RED BLOOD CELL COUNT 2.53 mill/uL (4.2-5.4); RED CELL DISTRIBUTION WIDTH 18.7 % (11.6-14.6)
[2023-11-13 06:20] LABS: DIFFERENTIAL COMMENT 1
[2023-11-13 06:23] LABS: POTASSIUM 4.3 mEq/L (3.5-5.1)
[2023-11-13 06:29] LABS: CREATININE 2.2 mg/dL (0.6-1.0)
[2023-11-13 07:17] LABS: CALCIUM 8.3 mg/dL (8.7-10.4)
[2023-11-13 09:59] LABS: BG BASE EXCESS -4.3 mmol/L (-2.0-2.0); BG CARBOXYHEMOGLOBIN 0.3 % (0.5-1.5); BG DEOXYHEMOGLOBIN 8.4 % (0.0-5.0); BG FRACTION INSPIRED OXYGEN 60; BG METHEMOGLOBIN 0.4 % (0.0-1.5); BG OXYGEN SATURATION 91.5 % (92.0-98.5); BG OXYHEMOGLOBIN 90.9 % (94.0-97.0); BG PCO2 39.2 mmHg (35.0-45.0); BG PH 7.347 (7.350-7.450); BG PO2 65.1 mmHg (75.0-100.0); BG SAMPLE SITE RIGHT RADIAL; BG TOTAL HEMOGLOBIN 7.5 g/dL (12.0-18.0); BG VENT MODE VENT - AC
[2023-11-13] MEDS: FUROSEMIDE 20MG/2ML VIAL IVP NR (10:05)
[2023-11-13 10:49] LABS: T4 FREE 1.02 ng/dL (0.89-1.76)
[2023-11-13] MEDS: RACEPINEPHRINE 2.25% 0.5ML NEB VIAL HHN PRN (12:18)
[2023-11-13] MEDS: PIPERACILLIN/TAZO 3.375G/50ML 50 ML IV SCH (22:30)
[2023-11-13] MEDS ORDERED: PROPOFOL 10MG/ML 100ML 100 ML IV PRN (23:00)
[2023-11-14] VITALS (99 sets, daily range): BP systolic 77–138; BP diastolic 55–93; PULSE 63–86; RESP 7–25; TEMP 97.8–98.8
[2023-11-14 00:08] LABS: BASOPHILS % 0.2 % (0.0-2.0); EOSINOPHILS % 0.3 % (0.0-5.0); HEMATOCRIT. 29.8 % (36.0-48.0); HEMOGLOBIN. 9.5 g/dL (12.0-16.0); LYMPHOCYTES % 9.3 % (20.0-50.0); MEAN CORPUSCULAR HEMOGLOBIN 28.7 pg (28.0-32.0); MEAN CORPUSCULAR VOLUME 89.5 fL (81.0-99.0); MEAN PLATELET VOLUME 8.7 fl (7.4-10.4); MONOCYTES % 7.2 % (2.0-8.0); PLATELET 108 x1000/uL (130-400); RED BLOOD CELL COUNT 3.32 mill/uL (4.2-5.4); RED CELL DISTRIBUTION WIDTH 19.2 % (11.6-14.6); WHITE BLOOD COUNT 11.5 x1000/uL (4.5-11.0)
[2023-11-14 00:19] LABS: PROTHROMBIN TIME 11.4 sec (9.6-11.0)
[2023-11-14] MEDS: FENTANYL 2500MCG/250ML PMX 250 ML IV PRN (03:53)
[2023-11-14 06:15] LABS: BASOPHILS % 0.3 % (0.0-2.0); HEMATOCRIT. 31.2 % (36.0-48.0); HEMOGLOBIN. 10.2 g/dL (12.0-16.0); LYMPHOCYTES % 10.3 % (20.0-50.0); MEAN CORPUSCULAR HEMOGLOBIN 28.8 pg (28.0-32.0); MEAN CORPUSCULAR HGB CONC 32.8 g/dL (31.0-37.0); MEAN CORPUSCULAR VOLUME 87.8 fL (81.0-99.0); MEAN PLATELET VOLUME 8.8 fl (7.4-10.4); MONOCYTES % 5.2 % (2.0-8.0); NEUTROPHILS % 83.2 % (40.0-76.0); PLATELET 116 x1000/uL (130-400); RED BLOOD CELL COUNT 3.55 mill/uL (4.2-5.4); RED CELL DISTRIBUTION WIDTH 19.3 % (11.6-14.6); WHITE BLOOD COUNT 10.1 x1000/uL (4.5-11.0)
[2023-11-14 06:48] LABS: CHLORIDE 111 mEq/L (98-107); POTASSIUM 3.3 mEq/L (3.5-5.1); SODIUM 138 mEq/L (136-145)
[2023-11-14 06:49] LABS: CALCIUM 8.1 mg/dL (8.7-10.4); CARBON DIOXIDE 20 mEq/L (21-32)
[2023-11-14 06:54] LABS: ALBUMIN 3.4 g/dL (3.2-4.8); CREATININE 2.1 mg/dL (0.6-1.0); GLUCOSE 118 mg/dL (70-105)
[2023-11-14 06:55] LABS: UREA NITROGEN BLOOD 27 mg/dL (9-23)
[2023-11-14 06:56] LABS: ALANINE AMINOTRANSFERASE 95 IU/L (10-49); ASPARTATE AMINOTRANSFERASE 64 IU/L (<34)
[2023-11-14 06:57] LABS: BILIRUBIN TOTAL 0.9 mg/dL (0.1-1.0); PROTEIN TOTAL 5.8 g/dL (6.0-8.3)
[2023-11-14] MEDS: KCL 20MEQ/100ML PREMIX 100 ML IV NR (09:06)
[2023-11-14 09:25] LABS: BG BASE EXCESS -5.7 mmol/L (-2.0-2.0); BG CARBOXYHEMOGLOBIN 0.1 % (0.5-1.5); BG DEOXYHEMOGLOBIN 9.7 % (0.0-5.0); BG FRACTION INSPIRED OXYGEN 40; BG HCO3 ACT 20.4 mmol/L (22.0-26.0); BG METHEMOGLOBIN 0.3 % (0.0-1.5); BG OXYGEN SATURATION 90.3 % (92.0-98.5); BG OXYHEMOGLOBIN 89.9 % (94.0-97.0); BG PCO2 42.3 mmHg (35.0-45.0); BG PH 7.301 (7.350-7.450); BG PO2 60.8 mmHg (75.0-100.0); BG SAMPLE SITE LEFT BRACHIAL; BG TOTAL HEMOGLOBIN 11.4 g/dL (12.0-18.0); BG VENT MODE VENT - AC
[2023-11-14] MEDS: POTASSIUM CHLORIDE 20MEQ/PACKET NG NR (10:39)
[2023-11-14] MEDS: FUROSEMIDE 20MG/2ML VIAL IVP NR (10:39)
[2023-11-14] MEDS: MIDODRINE HCL 2.5MG TABLET NG SCH (12:46)
[2023-11-14] MEDS: METHYLPREDNISOLONE SOD SUCC 40MG/ML (ACT-O-VIAL) IV SCH (12:47)
[2023-11-14] MEDS: VANCOMYCIN 750MG PREMIX 150 ML IV NR (16:26)
[2023-11-15] VITALS (104 sets, daily range): BP systolic 83–148; BP diastolic 52–93; PULSE 59–98; RESP 9–20; TEMP 98–98.9
[2023-11-15 05:48] LABS: HEMATOCRIT. 30.3 % (36.0-48.0); HEMOGLOBIN. 10.2 g/dL (12.0-16.0); MEAN CORPUSCULAR HEMOGLOBIN 29.2 pg (28.0-32.0); MEAN CORPUSCULAR HGB CONC 33.6 g/dL (31.0-37.0); MEAN CORPUSCULAR VOLUME 86.9 fL (81.0-99.0); MEAN PLATELET VOLUME 9.2 fl (7.4-10.4); PLATELET 144 x1000/uL (130-400); RED BLOOD CELL COUNT 3.49 mill/uL (4.2-5.4); RED CELL DISTRIBUTION WIDTH 19.6 % (11.6-14.6); WHITE BLOOD COUNT 9.1 x1000/uL (4.5-11.0)
[2023-11-15 05:51] LABS: DIFFERENTIAL COMMENT 1
[2023-11-15 05:52] LABS: CALCIUM 8.1 mg/dL (8.7-10.4); CARBON DIOXIDE 22 mEq/L (21-32); CHLORIDE 107 mEq/L (98-107)
[2023-11-15 05:53] LABS: POTASSIUM 5.1 mEq/L (3.5-5.1); SODIUM 141 mEq/L (136-145)
[2023-11-15 05:58] LABS: GLUCOSE 181 mg/dL (70-105)
[2023-11-15 05:59] LABS: UREA NITROGEN BLOOD 26 mg/dL (9-23)
[2023-11-15 06:01] LABS: PHOSPHORUS 3.3 mg/dL (2.5-4.9)
[2023-11-15] MEDS ORDERED: LEVOTHYROXINE SODIUM 100 MCG/ VIAL IV SCH (09:00)
[2023-11-15 09:13] LABS: BG BASE EXCESS -3.3 mmol/L (-2.0-2.0); BG CARBOXYHEMOGLOBIN 0.2 % (0.5-1.5); BG DEOXYHEMOGLOBIN 8.1 % (0.0-5.0); BG FRACTION INSPIRED OXYGEN 40; BG HCO3 ACT 23.2 mmol/L (22.0-26.0); BG METHEMOGLOBIN 0.3 % (0.0-1.5); BG OXYGEN SATURATION 91.9 % (92.0-98.5); BG OXYHEMOGLOBIN 91.4 % (94.0-97.0); BG PCO2 48.1 mmHg (35.0-45.0); BG PH 7.302 (7.350-7.450); BG PO2 63.7 mmHg (75.0-100.0); BG SAMPLE SITE RIGHT RADIAL; BG TOTAL HEMOGLOBIN 11.2 g/dL (12.0-18.0); BG VENT MODE VENT - SIMV
[2023-11-15] MEDS: MULTIVITAMINS,THER W-MINERALS TABLET NG SCH (09:22)
[2023-11-15] MEDS: MIDODRINE HCL 5MG TABLET NG SCH (09:22)
[2023-11-15] MEDS: FAMOTIDINE 20MG TABLET NG SCH (09:23)
[2023-11-15] MEDS: LEVOTHYROXINE SODIUM 75MCG TABLET NG NR (09:24)
[2023-11-15] MEDS: SODIUM POLYSTYRENE SULFONATE 15 G/60 ML BOT PO NR (12:16)
[2023-11-15] MEDS ORDERED: NON FORMULARY PATIENT HOME MED XX SCH (14:00)
[2023-11-15 15:54] LABS: PLATELET ESTIMATE NORMAL
[2023-11-16] VITALS (73 sets, daily range): BP systolic 80–133; BP diastolic 59–84; PULSE 60–93; RESP 13–26; TEMP 97.8–98.2
[2023-11-16 07:18] LABS: HEMATOCRIT. 27.8 % (36.0-48.0); HEMOGLOBIN. 9.1 g/dL (12.0-16.0); MEAN CORPUSCULAR HEMOGLOBIN 28.9 pg (28.0-32.0); MEAN CORPUSCULAR HGB CONC 32.9 g/dL (31.0-37.0); MEAN CORPUSCULAR VOLUME 87.9 fL (81.0-99.0); MEAN PLATELET VOLUME 9.7 fl (7.4-10.4); PLATELET 129 x1000/uL (130-400); RED BLOOD CELL COUNT 3.16 mill/uL (4.2-5.4); RED CELL DISTRIBUTION WIDTH 20.1 % (11.6-14.6); WHITE BLOOD COUNT 9.2 x1000/uL (4.5-11.0)
[2023-11-16 07:22] LABS: DIFFERENTIAL COMMENT 1
[2023-11-16 07:30] LABS: POTASSIUM 4.8 mEq/L (3.5-5.1)
[2023-11-16 07:31] LABS: CALCIUM 8.1 mg/dL (8.7-10.4)
[2023-11-16 07:34] LABS: CREATININE 1.9 mg/dL (0.6-1.0)
[2023-11-16] MEDS: LEVOTHYROXINE SODIUM 75MCG TABLET NG SCH (08:23)
[2023-11-16] MEDS: MIDODRINE HCL 5MG TABLET PO SCH (14:23)
[2023-11-16] MEDS: VANCOMYCIN 1G PREMIX 200 ML IV NR (16:04)
[2023-11-16 17:41] LABS: ANISOCYTOSIS 1+; PLATELET ESTIMATE DECREASED
[2023-11-16] MEDS: QUETIAPINE FUMARATE 25MG TABLET NG SCH (20:32)
[2023-11-17] VITALS (77 sets, daily range): BP systolic 85–153; BP diastolic 62–101; PULSE 59–99; RESP 9–24; TEMP 97–99.1
[2023-11-17 06:37] LABS: BASOPHILS % 0.1 % (0.0-2.0); HEMATOCRIT. 26.3 % (36.0-48.0); HEMOGLOBIN. 8.6 g/dL (12.0-16.0); LYMPHOCYTES % 6.1 % (20.0-50.0); MEAN CORPUSCULAR HEMOGLOBIN 29.2 pg (28.0-32.0); MEAN CORPUSCULAR HGB CONC 32.8 g/dL (31.0-37.0); MEAN CORPUSCULAR VOLUME 89.1 fL (81.0-99.0); MEAN PLATELET VOLUME 9.8 fl (7.4-10.4); MONOCYTES % 10.7 % (2.0-8.0); NEUTROPHILS % 83.1 % (40.0-76.0); PLATELET 122 x1000/uL (130-400); RED BLOOD CELL COUNT 2.95 mill/uL (4.2-5.4); RED CELL DISTRIBUTION WIDTH 20.2 % (11.6-14.6)
[2023-11-17 06:45] LABS: DIFFERENTIAL COMMENT 1
[2023-11-17 06:51] LABS: CARBON DIOXIDE 25 mEq/L (21-32); CHLORIDE 113 mEq/L (98-107); POTASSIUM 4.5 mEq/L (3.5-5.1); SODIUM 148 mEq/L (136-145)
[2023-11-17 06:52] LABS: CALCIUM 8.4 mg/dL (8.7-10.4)
[2023-11-17 06:56] LABS: CREATININE 1.7 mg/dL (0.6-1.0); GLUCOSE 205 mg/dL (70-105)
[2023-11-17 06:57] LABS: UREA NITROGEN BLOOD 35 mg/dL (9-23)
[2023-11-17 06:59] LABS: PHOSPHORUS 3.4 mg/dL (2.5-4.9)
[2023-11-17] MEDS ORDERED: ALBUMIN HUMAN 12.5G/250ML (5%) IV PRN (10:30)
[2023-11-17] MEDS: LEVOTHYROXINE SODIUM 75MCG TABLET NG SCH (11:10)
[2023-11-17] MEDS: DEXMEDETOMIDINE 400 MCG/100 ML 100 ML IV PRN (12:45)
[2023-11-17] MEDS ORDERED: RACEPINEPHRINE 2.25% 0.5ML NEB VIAL HHN PRN (14:45)
[2023-11-17] MEDS: METHYLPREDNISOLONE SOD SUCC 40MG/ML (ACT-O-VIAL) IV SCH (17:34)
[2023-11-17] MEDS: PIPERACILLIN/TAZO 3.375G/50ML 50 ML IV SCH (17:36)
[2023-11-17] MEDS ORDERED: PROPOFOL 10MG/ML 100ML 100 ML IV PRN (19:00)
[2023-11-17 19:49] LABS: BG BASE EXCESS -4.3 mmol/L (-2.0-2.0); BG CARBOXYHEMOGLOBIN 0.3 % (0.5-1.5); BG DEOXYHEMOGLOBIN 9.7 % (0.0-5.0); BG FRACTION INSPIRED OXYGEN 50; BG HCO3 ACT 21.5 mmol/L (22.0-26.0); BG METHEMOGLOBIN 0.3 % (0.0-1.5); BG OXYGEN SATURATION 90.2 % (92.0-98.5); BG OXYHEMOGLOBIN 89.7 % (94.0-97.0); BG PCO2 42.5 mmHg (35.0-45.0); BG PH 7.322 (7.350-7.450); BG PO2 61.1 mmHg (75.0-100.0); BG SAMPLE SITE RIGHT RADIAL; BG TOTAL HEMOGLOBIN 10.1 g/dL (12.0-18.0); BG VENT MODE VENT - SIMV
[2023-11-18] VITALS (50 sets, daily range): BP systolic 85–135; BP diastolic 56–104; PULSE 69–99; RESP 9–28; TEMP 97.6–98.7; O2SAT 100
[2023-11-18 04:29] LABS: BASOPHILS % 0.1 % (0.0-2.0); HEMATOCRIT. 25.7 % (36.0-48.0); HEMOGLOBIN. 8.2 g/dL (12.0-16.0); LYMPHOCYTES % 7.2 % (20.0-50.0); MEAN CORPUSCULAR HEMOGLOBIN 29.1 pg (28.0-32.0); MEAN CORPUSCULAR HGB CONC 32.1 g/dL (31.0-37.0); MEAN CORPUSCULAR VOLUME 90.5 fL (81.0-99.0); MEAN PLATELET VOLUME 9.9 fl (7.4-10.4); MONOCYTES % 11.9 % (2.0-8.0); NEUTROPHILS % 80.8 % (40.0-76.0); PLATELET 122 x1000/uL (130-400); RED BLOOD CELL COUNT 2.83 mill/uL (4.2-5.4); RED CELL DISTRIBUTION WIDTH 20.9 % (11.6-14.6)
[2023-11-18 04:38] LABS: POTASSIUM 5.3 mEq/L (3.5-5.1)
[2023-11-18 04:39] LABS: CALCIUM 9.2 mg/dL (8.7-10.4)
[2023-11-18 04:44] LABS: CREATININE 2.3 mg/dL (0.6-1.0)
[2023-11-18] MEDS ORDERED: MORPHINE SULFATE 250 MG in DEXT 5% WATER 250 ML IV PRN (10:00)
[2023-11-18] MEDS: MORPHINE SULFATE 250 MG in DEXT 5% WATER 225 ML IV PRN (10:08)
[2023-11-18] MEDS ORDERED: RACEPINEPHRINE 2.25% 0.5ML NEB VIAL HHN PRN (18:15)
[2023-11-19] VITALS (14 sets, daily range): BP systolic 0–110; BP diastolic 0–81; PULSE 0–105; RESP 0–16; TEMP 97.5–98
[2023-11-19] MEDS ORDERED: GLYCOPYRROLATE 0.2MG/ML VIAL 5ML IV PRN (10:15)
== END 2023-11-19 12:00 | DRG 207 ==
LOC: ER 01:07 → EDBEDREQ 02:29 → CVICU 13:14
PROVIDERS: ADMIT Internal Medicine Geriatric Medicine; ATTEND Internal Medicine Geriatric Medicine
PROC: 5A1955Z Respiratory Ventilation, Greater than 96 Consecutive Hours (ICD-10-PCS; principal; 2023-11-12)
PROC: 0BH17EZ Insertion of Endotracheal Airway into Trachea, Via Natural or Artificial Opening (ICD-10-PCS; 2023-11-12)
PROC: 02HV33Z Insertion of Infusion Device into Superior Vena Cava, Percutaneous Approach (ICD-10-PCS; 2023-11-12)
PROC: B548ZZA Ultrasonography of Superior Vena Cava, Guidance (ICD-10-PCS; 2023-11-12)
PROC: 30233N1 Transfusion of Nonautologous Red Blood Cells into Peripheral Vein, Percutaneous Approach (ICD-10-PCS; 2023-11-13)
DX: J96.01 Acute respiratory failure with hypoxia (principal); A41.9 Sepsis, unspecified organism; I50.21 Acute systolic (congestive) heart failure; J69.0 Pneumonitis due to inhalation of food and vomit; N17.0 Acute kidney failure with tubular necrosis; R65.20 Severe sepsis without septic shock; E87.0 Hyperosmolality and hypernatremia; I13.0 Hypertensive heart and chronic kidney disease with heart failure and stage 1 through stage 4 chronic kidney disease, or unspecified chronic kidney disease; E87.29 Other acidosis; J44.0 Chronic obstructive pulmonary disease with (acute) lower respiratory infection; G93.40 Encephalopathy, unspecified; E03.9 Hypothyroidism, unspecified; E86.1 Hypovolemia; F03.90 Unspecified dementia, unspecified severity, without behavioral disturbance, psychotic disturbance, mood disturbance, and anxiety; N18.1 Chronic kidney disease, stage 1; Z66 Do not resuscitate; D64.9 Anemia, unspecified; I07.1 Rheumatic tricuspid insufficiency; R13.10 Dysphagia, unspecified; Z93.1 Gastrostomy status; Z86.73 Personal history of transient ischemic attack (TIA), and cerebral infarction without residual deficits; Z79.899 Other long term (current) drug therapy
CPT/HCPCS: 31500; 36415; 36600; 70551; 71045; 80048; 80053; 80202; 82375; 82805; 82962; 83540; 83550; 83605; 83735; 83880; 84100; 84132; 84145; 84439; 84443; 84478; 84481; 84484; 85014; 85018; 85025; 85384; 86850; 86900; 86920; 87070; 93005; 93970; 94003; 94640; 99291; C1725; C9113; J1940; J2270; J2543; J2704; J2920; J2930; J3010; J3370; J3480; J3490; J7030; J7060; P9016; Q9957; A4315